=== PATIENT | female | born 1950 | race Caucasian/White ===

== ENCOUNTER 2020-04-22 07:27 | Emergency (ER) | payer MEDICARE, BC, SELFPAY ==
[2020-04-22 07:27] VITALS: BP 183/115; PULSE 72; RESP 16; TEMP 36.4; O2SAT 97; BMI 22.7
--- NOTE | 2020-04-22 07:49 | ED.DCSUM_ITS ---
- ER Visit Summary Date of Service: 04/22/20 Chief Complaint: Pain History of Present Illness: The patient is a 70 F with pain that started March 09. This was associated with dysuria and decreased urine output. She had the pain mostly at nighttime starting around 10 PM in the bilateral inguinal region. It has extended to her lower abdomen/suprapubic region. She is having the pain almost constantly now. She has seen multiple physicians and has had urinalysis, negative cultures, negative BV testing, metabolic panels, ultrasound of her kidneys and renal arteries. Pretty much everything has been unremarkable. She was treated with Keflex, Macrobid. She also was treated with Cipro but only 1 dose because her culture was negative. She was on Pyridium and Estrace. Nothing seems to help. She is not taking anything for pain because she does not think it would work. She follows with Dr. Reyes for COUNTY SHERIFF. History of hypertension and hyperlipidemia. No history of vascular disease, disease, kidney stones, JETTING MACHINE OPERATOR disease. She is not having any other or JETTING MACHINE OPERATOR symptoms. No other GI symptoms. No vascular symptoms. She has not yet had a pelvic exam for this. Physical Examination: Hypertensive at 183/115. But otherwise vitals are unremarkable. She is standing and appears uncomfortable but not toxic or in distress. Alert and oriented. Anxious. See below for pelvic exam. Test Results: We will check basic labs, urinalysis, culture, CT and GC, trichomonas. Will possibly check imaging pending further evaluation results. Emergency Department Course and Treatment: Patient was offered pain medicine but declined. Work-up as above. Patient tells me that she does not want to go home without a diagnosis and would like to be admitted to the hospital. Pelvic exam was chaperoned by DEDE Gregorio. This was unremarkable. External exam was normal without lesions, blood, discharge. Normal palpation externally. Internal exam was also unremarkable without discharge, lesions, or bleeding. No masses. Results are still pending. We will also check a CT to show her abdomen and pelvis. She was agreeable to medication for pain. Work-up was all fairly unremarkable. GC and CT results are still pending. Culture is still pending. CT showed postoperative and chronic changes. Nothing to explain her symptoms. Patient was discussed with her COUNTY SHERIFF. She may need a biopsy for lichen planus. She does have openings today and can see the patient today. She is not currently on any thing for pain and was prescribed a short course of Percocet. Follow-up as an outpatient. Treatment Plan: As above Disposition: Discharge Impression: Pelvic pain This note was generated with [employer] dictation software. It may contain incorrect words, spelling, and punctuation that were not noted in review of the chart prior to signing ED Disposition - Plan for ED Patient: Referrals: Francisco Miller III, MD [Primary Care Provider] -
[2020-04-22 08:01] LABS: Absolute Lymphocyte Count 1.26 X10^3/uL (0.83-4.51); Absolute Neutrophil Count 5.2 X10^3/uL (2.0-7.7); Basophil# 0.03 X10^3/uL; Basophil% 0.4 % (0-1); Eosinophils% 1.4 % (0-5); Hematocrit 45.2 % (37-47); Hemoglobin 15.1 g/dL (12.0-15.0); Lymphocyte # 1.26 X10^3/ul (4.0); Lymphocyte % 18.1 % (19-41); Mean Corp Hgb Conc 33.4 g/dL (32-36); Mean Corpuscular Hgb 30.9 pg (27.0-32.0); Mean Corpuscular Volume 92.6 fL (81-99); Monocyte% 5.7 % (0-10); NRBC Flagged by Analyzer 0 % (0-5); Neutrophil # 5.17 X10^3/uL (2.7-7.7); Neutrophil % 74.3 % (47-70); Platelet Count 304 K/mm3 (150-450); RBC Distribution Width CV 12.9 % (11.6-14.6); RBC Distribution Width SD 43.6 fl (35.1-43.9); Red Blood Count 4.88 M/mm3 (4.2-5.4)
--- NOTE | 2020-04-22 08:05 | CT_ITS ---
STUDY: CT ABDOMEN AND PELVIS WITH CONTRAST REASON FOR EXAM: Female, 70 years old. LOW ABD/PELVIC PAIN, UTI''S AND TROUBLE URINATING. PRIOR CHOLECYSTECTOMY RADIATION DOSAGE (If Supplied By Facility): CTDIvol = ( 13.16 ) mGy, DLP = ( 464.87 ) mGycm TECHNIQUE: Transaxial images were obtained from the dome of the diaphragm to the symphysis pubis without oral contrast. IV 100mL Isovue-300 was administered. Sagittal and coronal images were reconstructed. Individualized dose optimization techniques were used for this CT. COMPARISON: None. FINDINGS: Lung bases: Unremarkable. Heart: Unremarkable. Liver: Tiny hepatic hypodense lesions at the left hepatic lobe (axial image 22 series 2) too small to characterize. Additional hepatic cysts (axial image 28 series 2) the largest of which measures approximately 1.5 cm. Gallbladder/biliary ducts: Cholecystectomy. Minimal postcholecystectomy biliary ductal dilatation. Pancreas: Unremarkable. Spleen: Unremarkable. Adrenal glands: Unremarkable. Kidneys/ureters/bladder: Bilateral symmetric renal parenchymal enhancement. Persistent renal lobulations (anatomic variant). Nondilated ureters. Normal-appearing urinary bladder. Uterus/adnexa: Physiologic appearance. Large bowel/small bowel: Mild constipation. Colonic diverticulosis. No acute large bowel or small bowel process. Appendix: Normal (coronal image 55 series 601). Gastroesophageal junction/stomach: Gastric underdistention. Retroperitoneum/lymph nodes: No intra-abdominal free air. No ascites. No pathologically enlarged lymph nodes. Vascular: Mild vascular calcifications. No aneurysm. Osseous structures: Minimal degenerative features. No acute process. Subcutaneous/soft tissues: No acute process. Mild paraspinal muscle atrophy. CT/Abdomen/Pelvis W IV Cont ONLY IMPRESSION: No acute intra-abdominal/pelvic findings Nonemergent findings, as above Electronically Signed: Seamus Cuellar DO at 8:52 EDT Tel , Service support ,
[2020-04-22 08:13] LABS: Anion Gap 9 (5-15); BUN 23 mg/dL (7-18); Calcium,Total 8.8 mg/dL (8.5-10.1); Chloride 108 mmol/L (98-107); Creatinine, Serum 1.21 mg/dL (0.55-1.02); EST Glomerular Filtration Rate 47 mL/min (>60); Est Glom Filt Rate - Afr Amer 57 mL/min (>60); Estimated Creatinine Clearance 42.67 ml/min; Glucose 142 mg/dL (74-106); Potassium 3.8 mmol/L (3.5-5.1); Sodium Level 139 mmol/L (136-145)
[2020-04-22] MEDS: Morphine 4 MG/ML Syringe IV (08:15)
[2020-04-22] MEDS: Ondansetron 4 MG/2 ML Vial IV (08:15)
[2020-04-22 08:57] LABS: Mucous, Urine 0 SEEN /hpf (<or=2+)
[2020-04-22 09:00] LABS: Color, Urine Yellow (Yellow); Glucose, Dipstick Normal (Normal); Ketone-Dipstick 5 mg/dl (Negative); Leukocyte Esterase-Dipstick Negative /ul (Negative); Nitrite-Dipstick Negative (Negative); Occult Blood-Urine Negative /ul (Negative); Protein-Dipstick Negative (Negative); Specific Gravity, Urine 1.015 (1.002-1.030); Urine Bilirubin Dipstick Negative (Negative); Urine Clarity Sl. Cloudy (Clear); Urine Urobilinogen Normal (Normal)
--- NOTE | 2020-04-22 09:29 | ED.DEP ---
ED Disposition - Plan for ED Patient: Instructions: ED Pelvic Pain [facility] Prescriptions: Oxycodone HCl/Acetaminophen [Percocet 5/325] 1 tab PO Q6H PRN PRN 3 Days #12 tab PRN Reason: Pain Prescription Printed Referrals: Dayami Reyes DO [STAFF PHYSICIAN] -
[2020-04-22 09:44] VITALS: BP 158/86; PULSE 67; RESP 18; O2SAT 99
[2020-04-22 10:00] LABS: Bacteria RARE /hpf (None Seen); Red Blood Cells-Urine 0-5 SEEN /hpf (0-5); Squamous Epithelial Cells - UA 0-5 SEEN /hpf (5-10); White Blood Cells 0-5 SEEN /hpf (0-5)
[2020-04-22 12:33] LABS: Chlamydia Trachomatis by PCR Negative (Negative); Neisserai gonorrhoeae by PCR Negative (Negative); Probe Check PASS; Sample Adequacy Control PASS; Specimen Processing Control PASS
== END 2020-04-22 09:45 | disposition home or self-care (01) ==
PROVIDERS: Emergency Provider Emergency Medicine; PCP Family Medicine
DX: R10.2 Pelvic and perineal pain (principal); R30.0 Dysuria; I10 Essential (primary) hypertension; E78.00 Pure hypercholesterolemia, unspecified; Z79.899 Other long term (current) drug therapy; Z79.82 Long term (current) use of aspirin
CPT/HCPCS: 74177; 80048; 81001; 85025; 87086; 87088; 87210; 87491; 87591; 96374; 96375; 99283; J7040; Q9967; A4216; J2405

== ENCOUNTER 2021-03-12 23:10 | Inpatient (IN) | payer MEDICARE, BC, SELFPAY ==
[2021-03-12 23:11] VITALS: BP 151/87; PULSE 88; RESP 16; TEMP 36.6; O2SAT 99; BMI 21.9
--- NOTE | 2021-03-12 23:22 | RAD_ITS ---
HISTORY: chest pain EXAM: XR Chest 1 View: COMPARISON: February 21, 2016 FINDINGS: # of images incl. paperwork: 2 Pulmonary hyperexpansion is similar Lungs are clear. Heart is not enlarged. No acute osseous pathology perceived. Pulmonary vascularity is distinct. No effusions. RAD/Chest 1 View (Portable) IMPRESSION: Normal. at 0002 Reported and signed by: Everett Calhoun MD Electronically Signed: Everett Calhoun MD at 0:01 EDT Tel , Service support ,
--- NOTE | 2021-03-12 23:22 | EKG12_ITS ---
Test Reason : CP Blood Pressure : / mmHG Vent. Rate : 083 BPM Atrial Rate : 083 BPM P-R Int : 146 ms QRS Dur : 080 ms QT Int : 390 ms P-R-T Axes : 062 041 066 degrees QTc Int : 458 ms Normal sinus rhythm with sinus arrhythmia Low voltage QRS ST elevation consider anterior injury or acute infarct ACUTE DE / STEMI Abnormal ECG Confirmed by SUNIL BEEBE, UZAIR ([id number]), school photograph editor JOSHUA CLOUD ([id number]) on 03/17/2021 9:11:07 AM Referred By: Theresa Carlton Confirmed By:FATMATA BARBER MD
[2021-03-12] MEDS: Aspirin 81 MG TAB.CHEW 324 MG PO (23:27)
[2021-03-12] MEDS: Heparin Injection (Vial) 5,000 UNIT/ML VIAL 3810 UNIT IV (23:27)
[2021-03-12] MEDS: TICAGRELOR 90 MG TABLET 180 MG PO (23:27)
[2021-03-12] MEDS: Morphine 4 MG/ML Syringe IV (23:28)
--- NOTE | 2021-03-12 23:30 | ED.DCSUM_ITS ---
- ER Visit Summary Date of Service: 03/12/21 Chief Complaint: Chest pain History of Present Illness: The patient is a 71 F who presents with chest pain that began approximate 10 minutes prior to arrival. Patient states the pain is over the left parasternal area. Patient states it is constant. Patient states nothing makes it better nothing makes it worse. Patient describes it as sharp. Patient admits to nausea but denies any vomiting. Patient admits to some shortness of breath. Patient denies any diaphoresis. Patient denies any palpitations. Patient denies any cough or fever. Patient states she has a history of diabetes and coronary artery disease. Patient also admits to a family history of coronary artery disease in her father at a young age. Physical Examination: Vital signs are stable except for mildly elevated blood pressure 151/87. Patient is afebrile. Patient is still having pain in her chest on examination. Oral mucosa is pink and moist. Neck is supple. Trachea is midline. There is no JVD. Heart was regular rate and rhythm. Lungs are clear and equal bilateral. There is adequate respiratory effort. Abdomen is soft. Bowel sounds are normal. There is no tenderness. Extremities are intact. There is no calf tenderness or edema. Cranial nerves II through XII are intact. There are no focal motor or sensory deficits. Test Results: EKG was obtained. On my interpretation, there is a normal sinus rhythm with a rate of 83. There is ST elevation in leads V1 through V4. There are no reciprocal changes. PA interval, QRS interval, and QT C intervals are all within normal limits. Colstrip is normal. Portable 1 view chest x-ray was obtained. On my interpretation, lung fernández are clear. There is normal cardiac silhouette. Bony thorax is normal. There is no acute process noted. Radiologist also interpreted the x-ray and agrees. Emergency Department Course and Treatment: STEMI alert was called. Patient was given aspirin and Brilinta orally. Patient was given heparin and morphine IV. Case was discussed with Dr. Carlton, STEMI treasury manager. He will be in to evaluate the patient and take the patient to the [facility]. Case was also discussed with the hospitalist. He will admit the patient to his service. Prior to the patient going to the [facility] she had an episode of ventricular fibrillation. She was defibrillated with 200 J. Patient returned to a normal sinus rhythm. Patient was given [address] Carlton also recommended giving the patient 2 g of magnesium. This was done. Patient also had 3 more episodes of ventricular fibrillation. Patient was defibrillated again. Patient was given another 150 mg of amiodarone. Patient was transferred to the [facility]. Patient understood and was agreeable with the plan. All questions were answered. Disposition: Admit to hospital Impression: 1. Acute anterior STEMI Critical care time: 30 minutes. This was time spent obtaining history, performing physical examination, documenting, interpreting test results, discussion with consultants, and determining disposition. This note was generated with [employer] dictation software. It may contain incorrect words, spelling, and punctuation that were not noted in review of the chart prior to signing ED Disposition - Plan for ED Patient: Disposition: Acute Care Hospital [facility] Diagnosis: Acute ST elevation myocardial infarction (STEMI) of anterior wall Referrals: Francisco Miller III, MD [Primary Care Provider] -
[2021-03-12 23:31] VITALS: BP 156/138; PULSE 90; RESP 19; O2SAT 100
[2021-03-12 23:33] LABS: Absolute Lymphocyte Count 4.66 X10^3/uL (0.83-4.51); Absolute Neutrophil Count 7.1 X10^3/uL (2.0-7.7); Basophil# 0.07 X10^3/uL; Basophil% 0.5 % (0-1); Eosinophil# 0.45 X10^3/uL; Eosinophils% 3.4 % (0-5); Hematocrit 44.7 % (37-47); Lymphocyte # 4.66 X10^3/ul (0.83-4.51); Lymphocyte % 35.5 % (19-41); Mean Corp Hgb Conc 33.6 g/dL (32-36); Mean Corpuscular Hgb 31.1 pg (27.0-32.0); Mean Corpuscular Volume 92.7 fL (81-99); Mean Platelet Vol. 9.4 fl (6.2-12.0); Monocyte# 0.78 X10^3/uL; Monocyte% 5.9 % (0-10); NRBC Flagged by Analyzer 0 % (0-5); Neutrophil # 7.11 X10^3/uL (2.7-7.7); Neutrophil % 54.4 % (47-70); Platelet Count 285 K/mm3 (150-450); RBC Distribution Width CV 12.6 % (11.6-14.6); RBC Distribution Width SD 42.8 fl (35.1-43.9); Red Blood Count 4.82 M/mm3 (4.2-5.4); White Blood Count 13.1 K/mm3 (4.4-11.0)
[2021-03-12 23:34] VITALS: BP 149/105; PULSE 93; RESP 18; O2SAT 100
[2021-03-12] MEDS: Ondansetron 4 MG/2 ML Vial IV (23:36)
[2021-03-12 23:41] VITALS: BP 170/93; PULSE 86; RESP 21; O2SAT 100
[2021-03-12 23:41] LABS: Partial Thromboplast Time 23.4 Seconds (24.1-36.2); Prothrombin Time (Protime)PT. 12.2 SECONDS (11.7-14.9)
--- NOTE | 2021-03-12 23:42 | ED.RN ---
Addendum entered by Katharine León RN 03/12/21 23:45: vfib, noT vTACH Original Note: pt in vtach at this time. dr bland at the bedside shock at 200jules. pt with positive right femoral pulse. vitals 170/90 , 88, 21, 99% on 2L nc
--- NOTE | 2021-03-12 23:43 | PCM.HP.STD ---
Problem List (1) Acute ST elevation myocardial infarction (STEMI) of anterior wall Status: Acute History of Present Illness Date of Admission: 03/12/21 Chief Complaint: Chest pain Patient is a 71-year-old female with a significant history of coronary artery disease; and hypertension who presents to the emergency department with excruciating substernal chest pain that started about 10 minutes before presentation. She describes her chest pain as pain. Her chest pain radiates to her left arm where she says she has numbness. Also she has some back pain that had disappeared by the time she got to the emergency department. Her chest pain is constant with no ameliorating or aggravating factors. Also, she had chest pain about 1-2 days before presentation but her chest pain went away only for it to reoccur 10 minutes before this presentation as stated above. Past Medical History Medical History: Medical History (Last Reviewed 03/13/21 @ 00:[address] Shawn Hubbard MD) HTN (hypertension) I10 Allergies erythromycin lactobionate [From Erythrocin] Allergy (Verified 03/12/21 23:13) Swelling Penicillins Allergy (Verified 03/12/21 23:13) Swelling Home Medications: Ambulatory Orders Medication Instructions Recorded Ascorbic Acid [Vitamin C] 500 mg PO DAILY@0800 08/03/15 Cholecalciferol (VIT D3) [Vitamin 2,000 unit PO DAILY 08/03/15 D] Fluticasone 0.05% [Flonase Nasal 2 spray NASAL DAILY 08/03/15 [place]] Multivitamin [Daily Multiple 1 each PO DAILY 08/03/15 Vitamin] Losartan Potassium [Cozaar] 25 mg PO DAILY 08/21/15 Metoprolol Tartrate 25 mg PO DAILY 12/25/16 Surgical History: cholecystectomy, tonsillectomy Smoking Status: Never smoker - *Family History Maternal History Items: Heart Disease Review of Systems Constitutional: Denies: Chills, Fever, Weight Change HEENT: Denies: Head Aches, Sinus Congestion, Sinus Drainage Cardiovascular: Reports: Chest Pain. Denies: Palpitations Respiratory: Reports: Shortness of Breath. Denies: Cough, Shortness of breath at rest, Sputum production Gastrointestinal: Reports: Nausea. Denies: Abdominal Pain, Vomiting Genitourinary: Denies: Dysuria Musculoskeletal: Denies: Joint Pain, Joint Tenderness Skin: Denies: Rash, Wounds Neurological: Denies: Numbness, Tingling, Focal weakness Psychiatric: Denies: Anxiety, Depression, Homicidal Ideations, Suicidal Ideations Hematologic/ Lymphatic: Denies: Easy Bruising, Easy Bleeding VTE Information - Inpt Only VTE Present on Admission: No VTE Mechan Device Prophylaxis: None VTE Pharm Prophylaxis ordered?: No Reason prophylaxis not ordered:: Treatment Not Indicated - Heparin IV given at the ED for STEMI Patient Problems: Active and Suspected Problems (Last Updated 03/13/21 @ 00:[address] Shawn Hubbard MD) Acute ST elevation myocardial infarction (STEMI) of anterior wall (Acute) - Physical Exam Vitals/I&O's: Vital Signs Temp Pulse Resp BP Pulse Ox 97.9 F 86 21 H 170/93 H 100 03/12/21 23:11 03/12/21 23:41 03/12/21 23:41 03/12/21 23:41 03/12/21 23:41 Oxygen Flow Rate (L/min) 2 Oxygen Delivery Method Nasal Cannula Weight: 63.503 kg Body Mass Index (BMI) 21.9 General: Alert, Oriented x3, - - In distress secondary to chest pain HEENT: Atraumatic, PERRLA, EOMI, Normocephalic Neck: Supple, No JVD, Negative Carotid Bruits Lungs: Clear to auscultation, Normal air movement Cardiovascular: Regular rate, No murmurs Abdomen: Bowel Sounds Present, Soft, Non Tender Extremities: No edema, Capillary Refill Less than 3 Seconds Skin: No rashes, No breakdown Musculoskeletal: No Tenderness to Palpation of Joints or Extremities Neurological: Cranial nerves II-XII grossly intact Psych/Mental Status: Anxious Laboratory Results 03/12/21 23:27: WBC 13.1 H, RBC 4.82, Hgb 15.0, Hct 44.7, MCV 92.7, MCH 31.1, MCHC 33.6, RDW Std Deviation 42.8, RDW Coeff of Obi 12.6, Plt Count 285, MPV 9.4, Immature Gran % (Auto) 0.300, Neut % (Auto) 54.4, Lymph % (Auto) 35.5, Lake % (Auto) 5.9, Eos % (Auto) 3.4, Baso % (Auto) 0.5, Absolute Neuts (auto) 7.1, Absolute Lymphs (auto) 4.66 H, Nucleated RBC % 0 03/12/21 23:27: PT 12.2, INR 1.0, APTT 23.4 L 03/12/21 23:27: Sodium Pending, Potassium Pending, Chloride Pending, Carbon Dioxide Pending, Anion Gap Pending, BUN Pending, Creatinine Pending, Est GFR (MDRD) Af Amer Pending, Est GFR (MDRD) Non-Af Pending, BUN/Creatinine Ratio Pending, Glucose Pending, Calcium Pending, Troponin I Pending Current Medications Amiodarone HCl 150 mg/ (Dextrose) 103 mls @ 600 mls/hr IV BOLUS X1 ONE Stop: 03/12/21 23:51 Assessment/Plan All Active Problems (Last Updated 03/13/21 @ 00:[address] Shawn Hubbard MD) Acute ST elevation myocardial infarction (STEMI) of anterior wall (Acute) Patient is a 71-year-old female with a significant history of coronary artery disease; and hypertension who presents to the emergency department with excruciating substernal chest pain that started about 10 minutes before presentation and found to have ST elevation LA. ST elevation LA EKG tracing independently interpreted showed ST elevations in lead V1 to V4 but without a reciprocal changes. Received full dose of aspirin; Brilinta; morphine and heparin at the emergency department. Patient will be wheeled to the Plaster Applicator. Baby aspirin daily. Continue home metoprolol and cozaar if there are no contraindication after Plaster Applicator. Keep n.p.o. for now Emergent cardiac discussed the case with sort operations supervisor. Will consult sort operations supervisor inpatient. ventricular fibrillation Patient had episodes of multiple ventricular fibrillation and was defibrillated with ROSC. She was then given amiodarone IV at the ED; and another amiodarone enroute to the labor specialist. Hypertension Blood pressure is not within goal Continue metoprolol and Cozaar if there no contraindications of the Plaster Applicator. Trend blood pressure and adjust blood pressure medications. DVT prophylaxis Received heparin at emergent department. Further orders to be determined after heart cath. Inpatient E&M: 51893 In Hosp L3
[2021-03-12 23:51] LABS: Anion Gap 9 (5-15); BUN 24 mg/dL (7-18); BUN/Creat Ratio 19.2 RATIO (10-20); Chloride 105 mmol/L (98-107); Creatinine, Serum 1.25 mg/dL (0.55-1.02); EST Glomerular Filtration Rate 45 mL/min (>60); Est Glom Filt Rate - Afr Amer 55 mL/min (>60); Estimated Creatinine Clearance 40.72 ml/min; Glucose 149 mg/dL (74-106); Potassium 2.8 mmol/L (3.5-5.1); Sodium Level 137 mmol/L (136-145)
--- NOTE | 2021-03-12 23:51 | ED.RN ---
PT IN VFIB. DR COOPER AT THE BEDSIDE. 1 SHOCK 200 J, NO CHANGE. ANOTHER SHOCK 200J, NO CHANGE. PT STILL IN VFIB SHOCK AT 360J. PT WITH RIGHT FEMORAL PULSE. VITALS 160/106,87,27,100%2L.
[2021-03-13] VITALS (34 sets, daily range): BP systolic 107–169; BP diastolic 68–110; PULSE 72–101; RESP 10–27; TEMP 36.3–36.8; O2SAT 92–100; BMI 25.1
[2021-03-13] MEDS: Magnesium Sulfate 2 GM in Syringe 1 EACH IV (00:09)
[2021-03-13] MEDS: Heparin 10,000 UNITS/10 ML Vial 2000 UNITS IV (00:09)
--- NOTE | 2021-03-13 01:00 | EKG12_ITS ---
Test Reason : ST ELEVATION Blood Pressure : / mmHG Vent. Rate : 113 BPM Atrial Rate : 113 BPM P-R Int : 126 ms QRS Dur : 068 ms QT Int : 336 ms P-R-T Axes : 070 005 068 degrees QTc Int : 460 ms Sinus tachycardia Low voltage QRS Inferior infarct , possibly acute Anteroseptal infarct , possibly acute Lateral injury pattern * ACUTE AK Abnormal ECG Confirmed by KATHIE BEEBE, MAXWELL ([id number]), department editor SHIRLEY RIVAS ([id number]) on 03/18/2021 1:26:35 PM Referred By: Theresa Carlton Confirmed By:MAXWELL VÁZQUEZ MD
--- NOTE | 2021-03-13 01:06 | CL.PCI_ITS ---
PCI Cardiac Cath Report PCI Report: Procedure performed; 1. Left heart catheterization 2. Successful PCI of the culprit lesion, occluded mid LAD with predilatation using 2 x 20 mm balloon, followed by placement of 2.75 x 30 mm resolute/drug- eluting stent, overlapped proximally with a 3 x 18 mm resolute/drug-eluting s tent and achievement of 0% stenosis with LAUREN III flow Initially with occluded mid LAD LAUREN 0 flow post procedure achievement of LAUREN-[address] With resolution of ST segment elevation and resolution of symptoms of chest pain line. 3. Measurement of LVEDP 4. Left ventriculogram 5. Right common femoral artery angiography and placement of Perclose to close arteriotomy site. Preprocedure diagnosis; 71-year-old patient who presented to the ER at the [facility] severe retrosternal chest pain that started this evening around 11:00 according to patient with diaphoresis feeling nauseated Electrocardiogram in the ER showed evidence of ST elevation in the anterolateral lead with remarkable reciprocal change in the inferior lead Patient was very unstable she had recurrent episode of V. fib x4 requiring shock and also started on amiodarone IV 2 boluses were given. With 2 g of magnesium was given in the ER and patient was brought to the Geospatial Imagery Intelligence Analyst as an emergency. Patient had a history of CAD and had a prior cardiac catheterization done at [facility] however she did not have any stent or bypass surgery. Patient had history of diabetes mellitus which is controlled with diet according to her she is not a smoker. Interventional plan and catheters; 1. 6 Slovenian 3.5 EBU guide 2. 5 Slovenian JR4 catheter 3. 5 Slovenian pigtail catheter 4. 0.014 BMW universal straight 190 cm 0.014 run-through extra floppy 180 cm straight Patient brought as an emergency to the Geospatial Imagery Intelligence Analyst, risk-benefit procedure explained in detail and informed consent was obtained We will proceed with guide catheter which is 6 Slovenian EBU guide catheter engaged the left coronary ostium without difficulty Angiographic view revealed occluded mid LAD. Proceed with BMW wire across the lesion in the mid LAD, followed by predilatation using 2 x 20 mm balloon Followed by placement of a drug-eluting stent resolute 2.75 x 30. Overlap with 3 x 18 mm resolute and achieve LAUREN-3 flow, symptoms of chest pain resolved. This patient was given Brilinta 180 mg in the ER, aspirin 324, heparin a total of 5000 in the ER additional 3000 heparin was given in the Geospatial Imagery Intelligence Analyst with ACT level above 250 and patient was started on Integrilin 2 boluses of followed by infusion of 2 mcg. Hemodynamic; LV systolic function preserved with ejection fraction in the range of 55 to 60% There is no systolic gradient across the aortic valve LVEDP is around 21 mmHg Coronary angiography; 1. Left main coronary artery normal angiographically, trifurcating into LAD, ramus intermedius, left circumflex Left anterior descending artery large vessel occluded in the midportion at the site of the septal and a diagonal branch. Following the PCI LAD is a large vessel with abundant septal branches and reaching all the way to the apex 2. Ramus intermedius is a small to moderate sized vessel norm angiographically The left circumflex is a small normal angiographically 3. RCA is large dominant and normal angiographically. Perclose used to close arteriotomy site with no complication in the Geospatial Imagery Intelligence Analyst Conclusion recommendations; STEMI/acute anterolateral myocardial infarction with occluded mid LAD with successful PCI as explained Patient will be on dual antiplatelet therapy with Brilinta/aspirin for 1 year and to follow-up with aspirin indefinitely We will add beta-sami carvedilol and DEVI inhibitor and high-dose statin This is a very high risk patient who presented with severe symptoms of chest pain with ST elevation MS and V. fib x4 requiring multiple shocks in the ER and started on amiodarone and magnesium We will evaluate by echocardiogram in the morning and will continue to monitor electrolytes magnesium and potassium. Theresa Carlton MD,FACC,[facility]
[2021-03-13] MEDS: 0.9% Normal Saline 1,000 ML 75 ML IV ×2 (01:43→09:51)
[2021-03-13] MEDS: Ondansetron 4 MG/2 ML Vial IV (02:06)
[2021-03-13] MEDS: Furosemide 20 MG/2 ML VIAL IV (02:06)
[2021-03-13] MEDS: 0.9% Saline Lock 10 ML Syringe IV (02:06)
[2021-03-13 02:19] LABS: Absolute Lymphocyte Count 1.46 X10^3/uL (0.83-4.51); Absolute Neutrophil Count 16.3 X10^3/uL (2.0-7.7); Basophil# 0.05 X10^3/uL; Basophil% 0.3 % (0-1); Eosinophil# 0.26 X10^3/uL; Eosinophils% 1.4 % (0-5); Hematocrit 43.6 % (37-47); Hemoglobin 14.3 g/dL (12.0-15.0); Lymphocyte # 1.46 X10^3/ul (0.83-4.51); Lymphocyte % 7.7 % (19-41); Mean Corp Hgb Conc 32.8 g/dL (32-36); Mean Corpuscular Hgb 31.1 pg (27.0-32.0); Mean Corpuscular Volume 94.8 fL (81-99); Mean Platelet Vol. 9.8 fl (6.2-12.0); Monocyte# 0.77 X10^3/uL; Monocyte% 4.1 % (0-10); NRBC Flagged by Analyzer 0 % (0-5); Neutrophil # 16.31 X10^3/uL (2.7-7.7); Platelet Count 188 K/mm3 (150-450); RBC Distribution Width CV 12.6 % (11.6-14.6); RBC Distribution Width SD 43.8 fl (35.1-43.9); White Blood Count 18.9 K/mm3 (4.4-11.0)
[2021-03-13 02:28] LABS: International Normalized Ratio 1.2; Prothrombin Time (Protime)PT. 14.5 SECONDS (11.7-14.9)
[2021-03-13 02:33] LABS: Anion Gap 9 (5-15); BUN 21 mg/dL (7-18); BUN/Creat Ratio 18.9 RATIO (10-20); Calcium,Total 7.6 mg/dL (8.5-10.1); Chloride 104 mmol/L (98-107); Creatinine, Serum 1.11 mg/dL (0.55-1.02); EST Glomerular Filtration Rate 52 mL/min (>60); Est Glom Filt Rate - Afr Amer 63 mL/min (>60); Estimated Creatinine Clearance 45.86 ml/min; Glucose 201 mg/dL (74-106); Potassium 3.5 mmol/L (3.5-5.1); Sodium Level 135 mmol/L (136-145)
[2021-03-13 02:45] LABS: Partial Thromboplast Time > 250.0 Seconds (24.1-36.2)
--- NOTE | 2021-03-13 04:30 | NURSING ---
Pts primary rn aware of troponin of 90.2 at this time.
[2021-03-13 05:46] LABS: Absolute Lymphocyte Count 0.83 X10^3/uL (0.83-4.51); Absolute Neutrophil Count 18.3 X10^3/uL (2.0-7.7); Basophil# 0.02 X10^3/uL; Basophil% 0.1 % (0-1); Eosinophil# 0.01 X10^3/uL; Hematocrit 45.4 % (37-47); Lymphocyte # 0.83 X10^3/ul (0.83-4.51); Lymphocyte % 4.1 % (19-41); Mean Corpuscular Hgb 30.6 pg (27.0-32.0); Mean Corpuscular Volume 92.7 fL (81-99); Mean Platelet Vol. 9.6 fl (6.2-12.0); Monocyte# 1.18 X10^3/uL; Monocyte% 5.8 % (0-10); NRBC Flagged by Analyzer 0 % (0-5); Neutrophil # 18.32 X10^3/uL (2.7-7.7); Neutrophil % 89.6 % (47-70); Platelet Count 229 K/mm3 (150-450); RBC Distribution Width CV 12.7 % (11.6-14.6); RBC Distribution Width SD 43.1 fl (35.1-43.9); White Blood Count 20.5 K/mm3 (4.4-11.0)
[2021-03-13 06:02] LABS: BUN 20 mg/dL (7-18); Creatinine, Serum 1.15 mg/dL (0.55-1.02); EST Glomerular Filtration Rate 50 mL/min (>60); Estimated Creatinine Clearance 44.27 ml/min; Glucose 248 mg/dL (74-106)
[2021-03-13 06:03] LABS: ALB/GLOB Ratio 1.1 RATIO (0.9-2.4); AST(SGOT) 456 U/L (15-37); Alanine Aminotransfer ALT/SGPT 74 U/L (13-56); Albumin, Serum 3.8 g/dL (3.2-5.0); Alkaline Phosphatase 128 U/L (45-117); Anion Gap 7 (5-15); BUN/Creat Ratio 17.4 RATIO (10-20); Calcium,Total 8.1 mg/dL (8.5-10.1); Chloride 105 mmol/L (98-107); Cholesterol 158 mg/dL (200); Est Glom Filt Rate - Afr Amer 60 mL/min (>60); Globulin 3.6 g/dL (2.2-4.2); High Density Lipoprotein 40 mg/dL; Potassium 3.9 mmol/L (3.5-5.1); Protein, Total 7.4 g/dL (6.4-8.2); Sodium Level 137 mmol/L (136-145); Triglycerides 144 mg/dL; Very Low Density Lipoprotein 29 mg/dL (5-40)
--- NOTE | 2021-03-13 07:27 | PN_ITS ---
Patient Problems: Active and Suspected Problems (Last Updated 03/13/21 @ 12:08 by Gissell Ramos) Acute ST elevation myocardial infarction (STEMI) of anterior wall (Acute) Reason for Visit: Follow-up on acute STEMI Subjective: Patient was seen and examined. She complains of feeling thirsty. She denied any more chest pain or dizziness. She appeared very anxious. She has a FemoStop in her right groin for right hematoma/bruise post cath. Objective: Physical exam: General: Alert, Oriented x3, Cooperative, No apparent distress, Well developed HEENT: Atraumatic Oral: Moist Mucosa Neck: Supple Lungs: Clear to auscultation Cardiovascular: HS I+II, regular, no murmurs Abdomen: Bowel Sounds Present, Soft, Non Tender Extremities: No edema Skin: No rashes, No breakdown Neurological: Grossly intact Psych/Mental Status: Appropriate Vitals/I&O's: Vital Signs Temp Pulse Resp BP Pulse Ox 97.6 F L 82 22 H 136/96 H 96 03/13/21 01:10 03/13/21 06:00 03/13/21 06:00 03/13/21 06:00 03/13/21 06:51 Oxygen Flow Rate (L/min) 2 Oxygen Delivery Method Nasal Cannula Weight: 72.7 kg Body Mass Index (BMI) 25.1 Intake and Output for Last 24 Hours 03/11/21 03/12/21 03/13/21 23:59 23:59 23:59 Intake Total 220.7 / 220.7 Output Total 100 / 100 Balance 120.7 / 120.7 Laboratory Results 03/12/21 23:27: WBC 13.1 H, RBC 4.82, Hgb 15.0, Hct 44.7, MCV 92.7, MCH 31.1, MCHC 33.6, RDW Std Deviation 42.8, RDW Coeff of Obi 12.6, Plt Count 285, MPV 9.4, Immature Gran % (Auto) 0.300, Neut % (Auto) 54.4, Lymph % (Auto) 35.5, [place] % (Auto) 5.9, Eos % (Auto) 3.4, Baso % (Auto) 0.5, Absolute Neuts (auto) 7.1, Absolute Lymphs (auto) 4.66 H, Nucleated RBC % 0 03/12/21 23:27: PT 12.2, INR 1.0, APTT 23.4 L 03/12/21 23:27: Sodium 137, Potassium 2.8 L, Chloride 105, Carbon Dioxide 23.0, Anion Gap 9, BUN 24 H, Creatinine 1.25 H, Estim Creat Clear Calc 40.72, Est GFR (MDRD) Af Amer 55 L, Est GFR (MDRD) Non-Af 45 L, BUN/Creatinine Ratio 19.2, Glucose 149 H, Calcium 9.0, Troponin I 0.034 03/13/21 01:45: WBC 18.9 H, RBC 4.60, Hgb 14.3, Hct 43.6, MCV 94.8, MCH 31.1, MCHC 32.8, RDW Std Deviation 43.8, RDW Coeff of Obi 12.6, Plt Count 188, MPV 9.8, Immature Gran % (Auto) 0.500, Neut % (Auto) 86.0 H, Lymph % (Auto) 7.7 L, [place] % (Auto) 4.1, Eos % (Auto) 1.4, Baso % (Auto) 0.3, Absolute Neuts (auto) 16.3 H, Absolute Lymphs (auto) 1.46, Nucleated RBC % 0 03/13/21 01:45: PT 14.5, INR 1.2, APTT > 250.0 H* 03/13/21 01:45: Sodium 135 L, Potassium 3.5, Chloride 104, Carbon Dioxide 22.0, Anion Gap 9, BUN 21 H, Creatinine 1.11 H, Estim Creat Clear Calc 45.86, Est GFR (MDRD) Af Amer 63, Est GFR (MDRD) Non-Af 52 L, BUN/Creatinine Ratio 18.9, Glucose 201 H, Calcium 7.6 L 03/13/21 01:45: Troponin I 90.200 H* 03/13/21 05:40: WBC 20.5 H, RBC 4.90, Hgb 15.0, Hct 45.4, MCV 92.7, MCH 30.6, MCHC 33.0, RDW Std Deviation 43.1, RDW Coeff of Obi 12.7, Plt Count 229, MPV 9.6, Immature Gran % (Auto) 0.400, Neut % (Auto) 89.6 H, Lymph % (Auto) 4.1 L, [place] % (Auto) 5.8, Eos % (Auto) 0.0, Baso % (Auto) 0.1, Absolute Neuts (auto) 18.3 H, Absolute Lymphs (auto) 0.83, Nucleated RBC % 0 03/13/21 05:40: Troponin I > 200.000 H* 03/13/21 05:40: Sodium 137, Potassium 3.9, Chloride 105, Carbon Dioxide 25.0, Anion Gap 7, BUN 20 H, Creatinine 1.15 H, Estim Creat Clear Calc 44.27, Est GFR (MDRD) Af Amer 60, Est GFR (MDRD) Non-Af 50 L, BUN/Creatinine Ratio 17.4, Glucose 248 H, Calcium 8.1 L, Total Bilirubin 0.60, AST 456 H, ALT 74 H, Alkaline Phosphatase 128 H, Total Protein 7.4, Albumin 3.8, Globulin 3.6, Albumin/Globulin Ratio 1.1, Triglycerides 144, Cholesterol 158, LDL Cholesterol 89, VLDL Cholesterol 29, HDL Cholesterol 40 Current Medications Aspirin (Aspirin 81 Mg Tab.Chew) 81 mg PO DAILY@0800 [facility] Heparin Sodium (Porcine) (Heparin Injection (Vial) 5,000 Unit/Ml Vial) 5,000 unit SC Q12 [facility] Sodium Chloride () 1,000 mls @ 75 mls/hr IV .[id number] [facility] Last Admin: 03/13/21 01:43 Dose: 75 mls/hr Documented by: Eptifibatide (Integrilin) 75 mg in 100 mls @ 10.16 mls/hr CONT INF .[id number] [facility] Last Infusion: 03/13/21 01:50 Dose: 0 mcg/kg/min, 0 mls/hr Documented by: Sodium Chloride () 250 mls @ 15 mls/hr IV .[id number] PRN PRN Reason: Saline Flush Sodium Chloride () 250 mls @ 15 mls/hr IV .[id number] PRN PRN Reason: Additional IVPB Infusion Ondansetron HCl (Ondansetron 4 Mg/2 Ml Vial) 4 mg IV Q8H PRN PRN PRN Reason: NAUSEA/VOMITING Last Admin: 03/13/21 02:06 Dose: 4 mg Documented by: Sodium Chloride (0.9% Saline Lock 10 Ml Syringe) 10 - 40 ml IV UD PRN PRN Reason: SALINE FLUSH Last Admin: 03/13/21 02:06 Dose: 40 ml Documented by: Ticagrelor (Ticagrelor 90 Mg Tablet) 90 mg PO BID RAMU STROKE Vital Signs/Narrative: Vital Signs Pulse Resp BP Pulse Ox 03/13/21 06:51 96 03/13/21 06:00 82 22 H 136/96 H 96 03/13/21 05:00 80 22 H 147/90 H 97 03/13/21 04:00 84 23 H 140/96 H 96 03/13/21 03:45 80 19 H 148/88 H 96 Medical Necessity - Tobacco Use Smoking Status: Never smoker Assessment/Plan All Active Problems (Last Updated 03/13/21 @ 12:08 by Gissell Raoms) Acute ST elevation myocardial infarction (STEMI) of anterior wall (Acute) 1. Acute STEMI, anterolateral, s/p cardiac cath. Findings included occluded mid LAD with successful PCI H/o CAD, continue on aspirin, Brilinta, statin, metoprolol, losartan Cardiology following 2. Ventricular fibrillation, s/p shock, status amiodarone and magnesium IV Will check magnesium level 3. Leucocytosis, likely reactive secondary to stress No signs of sepsis, will trend 4. Hypokalemia, replaced 5. Hypertension, fairly uncontrolled, will resume home metoprolol and losartan 4. DVT PPx- Heparin SC Inpatient E&M: [id number] Subs Hosp L2
[2021-03-13] MEDS: TICAGRELOR 90 MG TABLET PO ×2 (09:47→21:12)
[2021-03-13] MEDS: LORazepam 1 MG Tablet PO (09:47)
[2021-03-13] MEDS: Heparin Injection (Vial) 5,000 UNIT/ML VIAL 5000 UNIT SC (09:50)
--- NOTE | 2021-03-13 10:24 | CASEMGMT ---
Addendum entered by Wu Lopez 03/13/21 10:29: Ana AGUAYO, pt was just medicated w/Ativan. Ana jaramillo Brilinta savings card has been given to pt and she was instructed on use. Ana states she will reinforce Brilinta savings card w/pt later today. Original Note: RN CM TANNING DRUM OPERATOR CM to room to meet with patient for initial transition planning/care coordination assessment. RN MYRA introduced self and role at [facility]. Pt voices understanding and consents to assessment at this time. Pt resting in bed. States is having some chest discomfort and states it has been ongoing. Ana AGUAYO, aware. Pt is A/O at this time and answers all questions appropriately. Care providers, pharmacy, and demographics verified/updated at this time. PCP: Dr Carlos Miller Specialists: none Preferred Pharmacy: [facility] Insurance: PRIYANKA Rafael Pena Prescription Benefit: Yes-[employer]. Pt to discharge home on Brilinta. Brilinta 30-day savings card given to pt and instructed on use. Pt voices understanding. Living Will/HPOA: [facility] does not have LW or HCPOA . Interested in more information but [facility] does not want to talk with SW at this time to complete paperwork. Provided information on advanced directives and given Social Service rac card with number to call if chooses in the future to utilize [facility] social work for advanced directive completion. Educated patient that, if patient so chooses, can come back to [facility] and meet with a SW as an outpatient to complete health care advanced directives. Patient expresses understanding. LNOK: , [place]. Has 2 children Living Arrangements: Lives w/her in 1 11/29 story home w/2 steps to enter. Independent w/ADL's and IADL's. Transportation: Pt states drives self and states no transportation concerns at this time. also drives DME: Denies using any DME and denies needs. HHC/SNF: No history of either. No needs identified. Pt wishes to return home and states has no concerns with going home at time of discharge. CM to follow for any further discharge planning/needs. Pt voices no further concerns/needs at this time. Advised pt to ask for CM if any further questions/concerns/needs arise. Voices understanding. PLAN: Home on Brilinta. Brilinta 30-day savings card given to pt and instructed on use. Pt voices understanding. Nav MILESN RN CM
--- NOTE | 2021-03-13 11:50 | CRPHASE1_ITS ---
Patient Communication Former Patient:: Phase I PHII Cardiac Rehab Discussed with Patient:: Yes Guide to Cardiac Rehab Given to Patient:: Yes Cardiac Rehab Facility Choice List Given to Patient:: Yes Choice Program [facility] CR PHII:: Communication Given to CR - Pt refusing to participate in CR at the time of the Phase I teaching. Refer Phase II Cardiac Rehab:: Yes Sessions:: 36 sessions - 3 days/wk, 12 weeks Cardiac Rehabilitation Info Cardiac Rehabilitation Program Information: Cardiac Rehabilitation is important for patients like you who are recovering f rom a heart problem. Cardiac rehabilitation programs are recognized as integral to the continued care of the patient with coronary heart disease. The cardiac rehabilitation program is designed to optimize a patient's physical, psychological, and social functioning. Health caregivers non medical work in cardiac rehabilitation programs and assist you with getting the treatments you need to get stronger and healthier - like exercise, healthy eating habits, and medications. Cardiac rehabilitation has been show to help people with heart problems live longer and have better life enjoyment than people who do not go to cardiac rehabilitation. Please contact the Cardiac Rehabilitation Program at [facility] at in two weeks if you have not heard from them.
--- NOTE | 2021-03-13 11:51 | CRPH1.INSTRU ---
General Education CAD and cardiac anatomy and function:: Needs reinforcement Explanation of diagnoses and procedures:: Needs reinforcement Sign/Symptoms of NH:: Needs reinforcement Antiplatelet therapy: Needs reinforcement Proper use of NTG-SL: Needs reinforcement Emergency procedures and activation of EMS: Needs reinforcement Compliance of all prescribed medications: Needs reinforcement Smoking Nicotine/Smoking Response Code:: Not instructed - Pt refusing education regarding cardiac rehab. Dyslipidemia Dyslipidemia Response Code:: Not instructed - Pt refusing education regarding cardiac rehab. Overweight/Obesity Overweight/Obesity:: Not instructed - Pt refusing education regarding cardiac rehab. Hypertension Hypertension:: Not instructed - Pt refusing education regarding cardiac rehab. Heart Disease Heart Disease Response Code:: Not instructed - Pt refusing education regarding cardiac rehab. Diabetes Diabetes:: Not instructed - Pt refusing education regarding cardiac rehab. Metabolic Syndrome Metabolic Syndrome Response Code:: Not instructed - Pt refusing education regarding cardiac rehab. Sedentary Sedentary Response Code:: Not instructed - Pt refusing education regarding cardiac rehab. Stress Stress Response Code:: Not instructed - Pt refusing education regarding cardiac rehab.
--- NOTE | 2021-03-13 12:16 | ECHOCS_ITS ---
Reason For Study: POST STEMI Procedure This was a 2D Doppler, Color Flow transthoracic echocardiogram. The study was technically difficult. Exam performed portable in ICU/CCU. Left Ventricle Moderate LV dilation with severe Anteroapical/septal Hypokinesia. The estimated ejection fraction is EF 35-40% %. Right Ventricle Normal right ventricle. Normal systolic function. Atria Normal left atrium. Normal right atrium. Intact atrial septum. Mitral Valve The mitral valve is structurally normal. No prolapse or stenosis seen. No mitral valve insufficiency. Tricuspid Valve Normal tricuspid valve. Trivial tricuspid valve insufficiency. Aortic Valve Trisinus/trileaflet aortic valve. Pulmonic Valve The pulmonic valve is not well visualized. Great Vessels Normal aortic root. Normal inferior vena cava. Pericardium/Pleural No pericardial effusion. Medication Diluted definity 4ml given slow IV push to enhance endocardial definition. MMode/2D Measurements & Calculations LVIDd: 4.2 cm IVSd: 0.86 cm Ao root diam: 2.8 cm LVIDs: 2.5 cm LVPWd: 0.85 cm RVDd: 2.4 cm FS: 40.0 % LAV(MOD-bp): 23.8 ml LVAd ap4: 25.4 cm2 SV(MOD-sp4): 31.6 ml LAV(MOD-bp) Indexed: 13.0 ml/m2 EDV(MOD-sp4): 78.3 ml LAV(MOD-sp2): 26.0 ml EDV(sp4-el): 82.9 ml LAV(MOD-sp4): 20.2 ml LVAs ap4: 19.2 cm2 ESV(MOD-sp4): 46.8 ml ESV(sp4-el): 49.2 ml EF(MOD-sp4): 40.3 % EF(sp4-el): 40.7 % SV(sp4-el): 33.8 ml LA A4 area: 10.1 cm2 LA dimension(2D): 2.7 cm RA A4 area: 8.9 cm2 Time Measurements MV dec time: 0.20 sec Doppler Measurements & Calculations MV E max clyde: 85.0 cm/sec Lat Peak E' Clyde: 10.6 cm/sec Med Peak E' Clyde: 6.4 cm/sec MV A max clyde: 87.3 cm/sec E/E' lat: 8.0 E/E' med: 13.4 MV E/A: 0.97 Ao V2 max: 131.0 cm/sec LV V1 max: 100.7 cm/sec PA V2 max: 91.3 cm/sec Ao max P.9 mmHg LV V1 max P.1 mmHg TR max clyde: 301.0 cm/sec TR max P.2 mmHg ECHO/Echo Complete W/ Contrast Interpretation Summary Moderate LV dilation with severe Anteroapical/septal Hypokinesia The estimated ejection fraction is EF 35-40% Defintty used to delinate ,the endocardium and measurment of LV systolic functi on Ordering Physician: Theresa Carlton Referring Physician: LYNN GARCIA Performed By: Colleen Arreguin RDCS
--- NOTE | 2021-03-13 13:41 | PN.CARD_ITS ---
Subjectve: 71-year-old patient, presented with retrosternal chest pain With acute anteroseptal myocardial infarction. She was very unstable in the ER and had 4 episodes of V. fib requiring immediate she had occluded mid LAD underwent PCI and stenting of the mid LAD Post PCI course has been clinically stable she does not have any further episode of chest pain. She was on Integrilin and she had bruises in the right groin requiring FemoStop application as well as sent back to the right groin Today at bedside she was seen and evaluated cardiac care plan discussed with the nursing staff Patient has normal cardiac rhythm with normal cardiac examination and Blood pressure is stable Assessment and plan;. Patient presented with STEMI/anteroseptal myocardial infarction The left ventricle gram in the [facility] showed LV function is preserved I discussed the current medication, will continue on dual antiplatelet with Brilinta and aspirin, low-dose beta-sami as tolerated, she has epigastric discomfort with the acid reflux/GERD started on proton pump inhibitor And also I noted she had elevated white cell count with neutrophilia and request to check her urine test for UTI. Patient has echocardiogram will review the echocardiogram today and will follow- up clinically. As the patient has unstable course with recurrent episode of ventricular fibrillation we will keep over the night in the intensive care unit and if she is stable clinically she can be transferred in the morning to the medical floor./PCU Objective: Vital Signs Temp Pulse Resp BP Pulse Ox 98 F 90 16 167/103 H 96 03/13/21 12:00 03/13/21 13:00 03/13/21 13:00 03/13/21 13:00 03/13/21 13:00 Oxygen Flow Rate (L/min) 2 Oxygen Delivery Method Room Air Weight: 160 lb 4.417 oz Body Mass Index (BMI) 25.1 Intake and Output for Last 24 Hours 03/11/21 03/12/21 03/13/21 23:59 23:59 23:59 Intake Total 1310.7 / 1310.7 Output Total 200 / 200 Balance 1110.7 / 1110.7 General: Awake, Alert, Oriented x 3 HEENT: PERRL, EOMI, Sclera Non Icteric Neck: Supple, Good ROM, No Lymph Node Enlargement Lungs: Clear to auscultation Cardiovascular: Regular Rhythm, Normal S1, Normal S2, No Murmurs, No Rubs, No Gallops, PMI Non Distended, No Thrills Abdomen: Bowel Sounds Present, Soft Skin: No Rashes Neurological: No Focal Motor or Sensory Deficit Psych/Mental Status: Appropriate 03/12/21 23:27: WBC 13.1 H, RBC 4.82, Hgb 15.0, Hct 44.7, MCV 92.7, MCH 31.1, MCHC 33.6, Plt Count 285, MPV 9.4, Immature Gran % (Auto) 0.300, Neut % (Auto) 54.4, Lymph % (Auto) 35.5, [place] % (Auto) 5.9, Eos % (Auto) 3.4, Baso % (Auto) 0.5, Absolute Neuts (auto) 7.1, Nucleated RBC % 0 03/12/21 23:27: PT 12.2, INR 1.0, APTT 23.4 L 03/12/21 23:27: Sodium 137, Potassium 2.8 L, Chloride 105, Carbon Dioxide 23.0, Anion Gap 9, BUN 24 H, Creatinine 1.25 H, Est GFR (MDRD) Af Amer 55 L, Est GFR (MDRD) Non-Af 45 L, BUN/Creatinine Ratio 19.2, Glucose 149 H, Calcium 9.0, Troponin I 0.034 03/13/21 01:45: WBC 18.9 H, RBC 4.60, Hgb 14.3, Hct 43.6, MCV 94.8, MCH 31.1, M CHC 32.8, Plt Count 188, MPV 9.8, Immature Gran % (Auto) 0.500, Neut % (Auto) 86.0 H, Lymph % (Auto) 7.7 L, [place] % (Auto) 4.1, Eos % (Auto) 1.4, Baso % (Auto) 0.3, Absolute Neuts (auto) 16.3 H, Nucleated RBC % 0 03/13/21 01:45: PT 14.5, INR 1.2, APTT > 250.0 H* 03/13/21 01:45: Sodium 135 L, Potassium 3.5, Chloride 104, Carbon Dioxide 22.0, Anion Gap 9, BUN 21 H, Creatinine 1.11 H, Est GFR (MDRD) Af Amer 63, Est GFR (MDRD) Non-Af 52 L, BUN/Creatinine Ratio 18.9, Glucose 201 H, Calcium 7.6 L 03/13/21 01:45: Troponin I 90.200 H* 03/13/21 05:40: WBC 20.5 H, RBC 4.90, Hgb 15.0, Hct 45.4, MCV 92.7, MCH 30.6, MCHC 33.0, Plt Count 229, MPV 9.6, Immature Gran % (Auto) 0.400, Neut % (Auto) 89.6 H, Lymph % (Auto) 4.1 L, [place] % (Auto) 5.8, Eos % (Auto) 0.0, Baso % (Auto) 0.1, Absolute Neuts (auto) 18.3 H, Nucleated RBC % 0 03/13/21 05:40: Troponin I > 200.000 H* 03/13/21 05:40: Sodium 137, Potassium 3.9, Chloride 105, Carbon Dioxide 25.0, Anion Gap 7, BUN 20 H, Creatinine 1.15 H, Est GFR (MDRD) Af Amer 60, Est GFR (MDRD) Non-Af 50 L, BUN/Creatinine Ratio 17.4, Glucose 248 H, Calcium 8.1 L, Total Bilirubin 0.60, Triglycerides 144, Cholesterol 158, LDL Cholesterol 89, VLDL Cholesterol 29, HDL Cholesterol 40 03/13/21 05:40: Magnesium 2.0 Rhythm: Normal sinus rhythm EKG: Evidence of recent anterior myocardial infarction Medical Necessity - Tobacco Use Smoking Status: Never smoker
[2021-03-13] MEDS: Carvedilol 3.125 MG TABLET PO ×2 (14:07→21:12)
[2021-03-13] MEDS: Calcium Carbonate 500 MG Tablet PO ×2 (14:07→20:04)
[2021-03-13] MEDS: Losartan Potassium 25 MG Tablet PO (14:07)
[2021-03-13] MEDS: Pantoprazole Sodium 40 MG Tablet PO (14:07)
[2021-03-13] MEDS: Aspirin 81 MG TAB.CHEW PO (14:07)
--- NOTE | 2021-03-13 16:18 | PCM.HP.STD ---
History of Present Illness The patient is a 71 year old F [] Past Medical History Past Medical History (Chronic Problems): Chronic Problems (Last Updated 03/13/21 @ 12:08 by Gissell Ramos) Presence of stent in coronary artery (Chronic ~03/13/21) Successful PCI of the culprit lesion, occluded mid LAD with predilatation using 2 x 20 mm balloon, followed by placement of 2.75 x 30 mm resolute/drug-eluting stent, overlapped proximally with a 3 x 18 mm resolute/drug-eluting stent and achievement of 0% stenosis with LAUREN III flow; Initially with occluded mid LAD LAUREN 0 flow post procedure achievement of LAUREN-3 flow. With resolution of ST segment elevation and resolution of symptoms of chest pain line per cardiac cath 03/13/21 Atherosclerotic heart disease of [place] coronary artery without angina pectoris (Chronic) Medical History: Medical History (Last Updated 03/13/21 @ 12:08 by Gissell Ramos) Presence of stent in coronary artery (Chronic) Onset Date: ~03/13/21 Z95.5 Successful PCI of the culprit lesion, occluded mid LAD with predilatation using 2 x 20 mm balloon, followed by placement of 2.75 x 30 mm resolute/drug-eluting stent, overlapped proximally with a 3 x 18 mm resolute/drug-eluting stent and achievement of 0% stenosis with LAUREN III flow; Initially with occluded mid LAD LAUREN 0 flow post procedure achievement of LAUREN-3 flow. With resolution of ST segment elevation and resolution of symptoms of chest pain line per cardiac cath 03/13/21 Atherosclerotic heart disease of [place] coronary artery without angina pectoris (Chronic) I25.[address] elevation myocardial infarction (STEMI) of anterior wall (Acute) I21.09 HTN (hypertension) I10 Allergies erythromycin lactobionate [From Erythrocin] Allergy (Verified 03/12/21 23:13) Swelling Penicillins Allergy (Verified 03/12/21 23:13) Swelling Home Medications: Ambulatory Orders Medication Instructions Recorded Ascorbic Acid [Vitamin C] 500 mg PO DAILY@0800 08/03/15 Cholecalciferol (VIT D3) [Vitamin 2,000 unit PO DAILY 08/03/15 D] Fluticasone 0.05% [Flonase Nasal 2 spray NASAL DAILY 08/03/15 [place]] Multivitamin [Daily Multiple 1 each PO DAILY 08/03/15 Vitamin] Losartan Potassium [Cozaar] 25 mg PO DAILY 08/21/15 Metoprolol Tartrate 25 mg PO DAILY 12/25/16 Surgical History: Surgical History Presence of coronary angioplasty implant and graft Onset Date: ~03/13/21 Z95.5 Successful PCI of the culprit lesion, occluded mid LAD with predilatation using 2 x 20 mm balloon, followed by placement of 2.75 x 30 mm resolute/drug-eluting stent, overlapped proximally with a 3 x 18 mm resolute/drug-eluting stent and achievement of 0% stenosis with LAUREN III flow; Initially with occluded mid LAD LAUREN 0 flow post procedure achievement of LAUREN-3 flow. With resolution of ST segment elevation and resolution of symptoms of chest pain line per cardiac cath 03/13/21 Surgical History: cholecystectomy, tonsillectomy Smoking Status: Never smoker - *Family History Maternal History Items: Heart Disease Patient Problems: Active and Suspected Problems (Last Updated 03/13/21 @ 12:08 by Gissell Ramos) Acute ST elevation myocardial infarction (STEMI) of anterior wall (Acute) - Physical Exam Vitals/I&O's: Vital Signs Temp Pulse Resp BP Pulse Ox 98.2 F 100 17 156/94 H 94 03/13/21 15:00 03/13/21 16:00 03/13/21 15:00 03/13/21 15:00 03/13/21 15:00 Oxygen Flow Rate (L/min) 2 Oxygen Delivery Method Room Air Weight: 72.7 kg Body Mass Index (BMI) 25.1 Intake and Output for Last 24 Hours 03/11/21 03/12/21 03/13/21 23:59 23:59 23:59 Intake Total 1310.7 / 1310.7 Output Total 200 / 200 Balance 1110.7 / 1110.7 General: Cooperative, Confused, Disoriented, Lethargic, Non-Cooperative Laboratory Results 03/12/21 23:27: WBC 13.1 H, RBC 4.82, Hgb 15.0, Hct 44.7, MCV 92.7, MCH 31.1, MCHC 33.6, RDW Std Deviation 42.8, RDW Coeff of Obi 12.6, Plt Count 285, MPV 9.4, Immature Gran % (Auto) 0.300, Neut % (Auto) 54.4, Lymph % (Auto) 35.5, [place] % (Auto) 5.9, Eos % (Auto) 3.4, Baso % (Auto) 0.5, Absolute Neuts (auto) 7.1, Absolute Lymphs (auto) 4.66 H, Nucleated RBC % 0 03/12/21 23:27: PT 12.2, INR 1.0, APTT 23.4 L 03/12/21 23:27: Sodium 137, Potassium 2.8 L, Chloride 105, Carbon Dioxide 23.0, Anion Gap 9, BUN 24 H, Creatinine 1.25 H, Estim Creat Clear Calc 40.72, Est GFR (MDRD) Af Amer 55 L, Est GFR (MDRD) Non-Af 45 L, BUN/Creatinine Ratio 19.2, Glucose 149 H, Calcium 9.0, Troponin I 0.034 03/13/21 01:45: WBC 18.9 H, RBC 4.60, Hgb 14.3, Hct 43.6, MCV 94.8, MCH 31.1, MCHC 32.8, RDW Std Deviation 43.8, RDW Coeff of Obi 12.6, Plt Count 188, MPV 9.8, Immature Gran % (Auto) 0.500, Neut % (Auto) 86.0 H, Lymph % (Auto) 7.7 L, [place] % (Auto) 4.1, Eos % (Auto) 1.4, Baso % (Auto) 0.3, Absolute Neuts (auto) 16.3 H, Absolute Lymphs (auto) 1.46, Nucleated RBC % 0 03/13/21 01:45: PT 14.5, INR 1.2, APTT > 250.0 H* 03/13/21 01:45: Sodium 135 L, Potassium 3.5, Chloride 104, Carbon Dioxide 22.0, Anion Gap 9, BUN 21 H, Creatinine 1.11 H, Estim Creat Clear Calc 45.86, Est GFR (MDRD) Af Amer 63, Est GFR (MDRD) Non-Af 52 L, BUN/Creatinine Ratio 18.9, Glucose 201 H, Calcium 7.6 L 03/13/21 01:45: Troponin I 90.200 H* 03/13/21 05:40: WBC 20.5 H, RBC 4.90, Hgb 15.0, Hct 45.4, MCV 92.7, MCH 30.6, MCHC 33.0, RDW Std Deviation 43.1, RDW Coeff of Obi 12.7, Plt Count 229, MPV 9.6, Immature Gran % (Auto) 0.400, Neut % (Auto) 89.6 H, Lymph % (Auto) 4.1 L, [place] % (Auto) 5.8, Eos % (Auto) 0.0, Baso % (Auto) 0.1, Absolute Neuts (auto) 18.3 H, Absolute Lymphs (auto) 0.83, Nucleated RBC % 0 03/13/21 05:40: Troponin I > 200.000 H* 03/13/21 05:40: Sodium 137, Potassium 3.9, Chloride 105, Carbon Dioxide 25.0, Anion Gap 7, BUN 20 H, Creatinine 1.15 H, Estim Creat Clear Calc 44.27, Est GFR (MDRD) Af Amer 60, Est GFR (MDRD) Non-Af 50 L, BUN/Creatinine Ratio 17.4, Glucose 248 H, Calcium 8.1 L, Total Bilirubin 0.60, AST 456 H, ALT 74 H, Alkaline Phosphatase 128 H, Total Protein 7.4, Albumin 3.8, Globulin 3.6, Albumin/Globulin Ratio 1.1, Triglycerides 144, Cholesterol 158, LDL Cholesterol 89, VLDL Cholesterol 29, HDL Cholesterol 40 03/13/21 05:40: Magnesium 2.0 Current Medications Ascorbic Acid (Ascorbic Acid 500 Mg Tablet) 500 mg PO DAILY@0800 [facility] Aspirin (Aspirin 81 Mg Tab.Chew) 81 mg PO DAILY@0800 [facility] Atorvastatin Calcium (Atorvastatin Calcium 40 Mg Tablet) 40 mg PO QHS [facility] Calcium Carbonate (Calcium Carbonate 500 Mg Tablet) 500 mg PO Q4H PRN PRN PRN Reason: HEARTBURN OR INDIGESTION Last Admin: 03/13/21 14:07 Dose: 500 mg Documented by: Carvedilol (Carvedilol 3.125 Mg Tablet) 3.125 mg PO BID [facility] Last Admin: 03/13/21 14:07 Dose: 3.125 mg Documented by: Cholecalciferol (Cholecalciferol (Vit D3) 25 Mcg Tablet (1,000 Units)) [facility] Fluticasone Propionate (Fluticasone 0.05% 1 [place] Nasal.Sry) 2 spray NASAL DAILY [facility] Sodium Chloride () 250 mls @ 15 mls/hr IV .[id number] PRN PRN Reason: Saline Flush Sodium Chloride () 250 mls @ 15 mls/hr IV .[id number] PRN PRN Reason: Additional IVPB Infusion Losartan Potassium (Losartan Potassium 25 Mg Tablet) 25 mg PO DAILY [facility] Last Admin: 03/13/21 14:07 Dose: 25 mg Documented by: Multivitamins (Multivitamins,Therapeutic Tablet) [facility] Ondansetron HCl (Ondansetron 4 Mg/2 Ml Vial) 4 mg IV Q8H PRN PRN PRN Reason: NAUSEA/VOMITING Last Admin: 03/13/21 02:06 Dose: 4 mg Documented by: Pantoprazole Sodium (Pantoprazole Sodium 40 Mg Tablet) 40 mg PO DAILY [facility] Last Admin: 03/13/21 14:07 Dose: 40 mg Documented by: Sodium Chloride (0.9% Saline Lock 10 Ml Syringe) 10 - 40 ml IV UD PRN PRN Reason: SALINE FLUSH Last Admin: 03/13/21 02:06 Dose: 40 ml Documented by: Ticagrelor (Ticagrelor 90 Mg Tablet) 90 mg PO BID [facility] Last Admin: 03/13/21 09:47 Dose: 90 mg Documented by: Assessment/Plan All Active Problems (Last Updated 03/13/21 @ 12:08 by Gissell Ramos) Acute ST elevation myocardial infarction (STEMI) of anterior wall (Acute)
[2021-03-14] VITALS (25 sets, daily range): BP systolic 92–147; BP diastolic 51–100; PULSE 90–115; RESP 13–26; TEMP 36.4–37.1; O2SAT 94–98
--- NOTE | 2021-03-14 02:32 | EKG12_ITS ---
Test Reason : EKG CHANGES Blood Pressure : / mmHG Vent. Rate : 103 BPM Atrial Rate : 103 BPM P-R Int : 132 ms QRS Dur : 072 ms QT Int : 350 ms P-R-T Axes : 041 005 062 degrees QTc Int : 458 ms Sinus tachycardia Low voltage QRS Septal infarct , age undetermined Lateral injury pattern * ACUTE [place] Abnormal ECG Confirmed by KATHIE BEEBE, MAXWELL ([id number]), industrial editor HI PAULINO ([id number]) on 03/19/2021 2:07:55 PM Referred By: Theresa Carlton Confirmed By:MAXWELL VÁZQUEZ MD
[2021-03-14 03:44] LABS: Hematocrit 44.1 % (37-47); Hemoglobin 14.6 g/dL (12.0-15.0); Mean Corp Hgb Conc 33.1 g/dL (32-36); Mean Corpuscular Hgb 31.1 pg (27.0-32.0); Mean Corpuscular Volume 93.8 fL (81-99); Mean Platelet Vol. 9.6 fl (6.2-12.0); Platelet Count 246 K/mm3 (150-450); RBC Distribution Width CV 12.8 % (11.6-14.6); RBC Distribution Width SD 44.3 fl (35.1-43.9); White Blood Count 22.8 K/mm3 (4.4-11.0)
[2021-03-14 04:01] LABS: ALB/GLOB Ratio 0.9 RATIO (0.9-2.4); AST(SGOT) 196 U/L (15-37); Alanine Aminotransfer ALT/SGPT 61 U/L (13-56); Albumin, Serum 3.5 g/dL (3.2-5.0); Alkaline Phosphatase 97 U/L (45-117); Anion Gap 6 (5-15); BUN 15 mg/dL (7-18); BUN/Creat Ratio 15.4 RATIO (10-20); Calcium,Total 8.8 mg/dL (8.5-10.1); Chloride 103 mmol/L (98-107); Creatinine, Serum 0.98 mg/dL (0.55-1.02); EST Glomerular Filtration Rate 60 mL/min (>60); Est Glom Filt Rate - Afr Amer 73 mL/min (>60); Estimated Creatinine Clearance 51.94 ml/min; Globulin 3.8 g/dL (2.2-4.2); Glucose 143 mg/dL (74-106); Protein, Total 7.3 g/dL (6.4-8.2); Sodium Level 135 mmol/L (136-145)
[2021-03-14] MEDS: TICAGRELOR 90 MG TABLET PO ×2 (08:27→21:23)
[2021-03-14] MEDS: Aspirin 81 MG TAB.CHEW PO (08:27)
[2021-03-14] MEDS: LORazepam 0.5 MG Tablet PO (09:57)
[2021-03-14] MEDS: Ascorbic Acid 500 MG Tablet PO (09:58)
[2021-03-14] MEDS: 0.9% Saline Lock 10 ML Syringe IV (09:58)
[2021-03-14] MEDS: Cholecalciferol (VIT D3) 25 MCG TABLET (1,000 UNITS) 50 MCG PO (09:58)
[2021-03-14] MEDS: Multivitamins,Therapeutic Tablet 1 TABLET PO (09:58)
[2021-03-14] MEDS: Carvedilol 3.125 MG TABLET PO ×2 (09:58→21:23)
[2021-03-14] MEDS: Pantoprazole Sodium 40 MG Tablet PO (09:58)
[2021-03-14] MEDS: Losartan Potassium 25 MG Tablet PO (09:59)
--- NOTE | 2021-03-14 10:21 | PN.CARD_ITS ---
Objective: Vital Signs Temp Pulse Resp BP Pulse Ox 98.7 F 100 20 H 135/100 H 98 03/14/21 04:45 03/14/21 07:00 03/14/21 07:00 03/14/21 07:00 03/14/21 07:21 Oxygen Flow Rate (L/min) 2 Oxygen Delivery Method Nasal Cannula Weight: 158 lb 4.67 oz Body Mass Index (BMI) 25.1 Intake and Output for Last 24 Hours 03/12/21 03/13/21 03/14/21 23:59 23:59 23:59 Intake Total 2506.95 / 2506.95 0 / 0 Output Total 1100 / 1100 200 / 200 Balance 1406.95 / 1406.95 -200 / -200 Neck: Supple Lungs: Clear to auscultation Cardiovascular: Regular Rhythm, Normal S1, Normal S2 Abdomen: Bowel Sounds Present, Non Tender Neurological: No Focal Motor or Sensory Deficit Psych/Mental Status: Appropriate, Anxious 03/13/21 05:40: Magnesium 2.0 03/14/21 03:30: WBC 22.8 H, RBC 4.70, Hgb 14.6, Hct 44.1, MCV 93.8, MCH 31.1, MCHC 33.1, Plt Count 246, MPV 9.6 03/14/21 03:30: Sodium 135 L, Potassium 4.0, Chloride 103, Carbon Dioxide 26.0, Anion Gap 6, BUN 15, Creatinine 0.98, Est GFR (MDRD) Af Amer 73, Est GFR (MDRD) Non-Af 60, BUN/Creatinine Ratio 15.4, Glucose 143 H, Calcium 8.8, Total Bilirubin 0.90 Rhythm: Underlying normal sinus rhythm EKG: Of recent anteroseptal and lateral [place] ECHO: Anteroapical and septal hypokinesia with ejection fraction of around 35- 40% Medical Necessity - Tobacco Use Smoking Status: Never smoker Assessment/Plan 71-year-old patient, seen and evaluated today at bedside in the intensive care unit along with the nursing staff And cardiac care plan discussed in detail Patient repeatedly denied any symptoms of chest pain Her symptoms of epigastric discomfort improved on Protonix. She remains stable clinically, cardiac rhythm is sinus blood pressure stable Cardiac exam essentially normal She has bruises on the right groin as she was on Integrilin which is discontinued. There is no hematoma at the groin and assessment and plan; 1. Patient with ST elevation [place] with successful PCI and stent of the culprit lesion LAD and placement of 2 drug-eluting stent 2. Patient currently on dual antiplatelet therapy with Brilinta/aspirin continue. 3. Echocardiographic evaluation showed segmental wall motion changes noted in t he anterior septal with EF in the range of 35-40% We will continue to monitor the patient in the intensive care unit over the night and will follow up with current medication.
--- NOTE | 2021-03-14 10:51 | PN_ITS ---
Patient Problems: Active and Suspected Problems (Last Updated 03/13/21 @ 12:08 by Gissell Ramos) Acute ST elevation myocardial infarction (STEMI) of anterior wall (Acute) Subjective: Feels better, no issues overnight. Denies any chest pain or shortness of breath currently. Vitals/I&O's: Vital Signs Temp Pulse Resp BP Pulse Ox 98.7 F 100 20 H 135/100 H 98 03/14/21 04:45 03/14/21 07:00 03/14/21 07:00 03/14/21 07:00 03/14/21 07:21 Oxygen Flow Rate (L/min) 2 Oxygen Delivery Method Nasal Cannula Weight: 158 lb 4.67 oz Body Mass Index (BMI) 25.1 Intake and Output for Last 24 Hours 03/12/21 03/13/21 03/14/21 23:59 23:59 23:59 Intake Total 2506.95 / 2506.95 0 / 0 Output Total 1100 / 1100 200 / 200 Balance 1406.95 / 1406.95 -200 / -200 General: Alert, Oriented x3, Cooperative, No apparent distress HEENT: Atraumatic, PERRLA, EOMI, Normocephalic Oral: Moist Mucosa Neck: Supple, No JVD Lungs: Clear to auscultation, Normal air movement, No rhonchi, No wheeze, No rales Cardiovascular: Regular rate, Regular Rhythm, Normal S1, Normal S2, No murmurs Abdomen: Soft, Non Tender, Non-Distended, No Hepato-splenomegaly Extremities: No edema, Capillary Refill Less than 3 Seconds Skin: No rashes, No breakdown Neurological: Neuro grossly intact, Sensory exam intact to light touch and pain Psych/Mental Status: Normal Affect, Appropriate Laboratory Results 03/13/21 05:40: Magnesium 2.0 03/14/21 03:30: WBC 22.8 H, RBC 4.70, Hgb 14.6, Hct 44.1, MCV 93.8, MCH 31.1, MCHC 33.1, RDW Std Deviation 44.3 H, RDW Coeff of Obi 12.8, Plt Count 246, MPV 9.6 03/14/21 03:30: Sodium 135 L, Potassium 4.0, Chloride 103, Carbon Dioxide 26.0, Anion Gap 6, BUN 15, Creatinine 0.98, Estim Creat Clear Calc 51.94, Est GFR (MDRD) Af Amer 73, Est GFR (MDRD) Non-Af 60, BUN/Creatinine Ratio 15.4, Glucose 143 H, Calcium 8.8, Total Bilirubin 0.90, AST 196 H, ALT 61 H, Alkaline Phosphatase 97, Total Protein 7.3, Albumin 3.5, Globulin 3.8, Albumin/Globulin Ratio 0.9 Current Medications Ascorbic Acid (Ascorbic Acid 500 Mg Tablet) 500 mg PO DAILY@0800 [facility] Last Admin: 03/14/21 09:58 Dose: 500 mg Documented by: Aspirin (Aspirin 81 Mg Tab.Chew) 81 mg PO DAILY@0800 [facility] Last Admin: 03/14/21 08:27 Dose: 81 mg Documented by: Atorvastatin Calcium (Atorvastatin Calcium 40 Mg Tablet) 40 mg PO QHS [facility] Last Admin: 03/13/21 21:12 Dose: Not Given Documented by: Calcium Carbonate (Calcium Carbonate 500 Mg Tablet) 500 mg PO Q4H PRN PRN PRN Reason: HEARTBURN OR INDIGESTION Last Admin: 03/13/21 20:04 Dose: 500 mg Documented by: Carvedilol (Carvedilol 3.125 Mg Tablet) 3.125 mg PO BID [facility] Last Admin: 03/14/21 09:58 Dose: 3.125 mg Documented by: Cholecalciferol (Cholecalciferol (Vit D3) 25 Mcg Tablet (1,000 Units)) [facility] Last Admin: 03/14/21 09:58 Dose: 50 mcg Documented by: Fluticasone Propionate (Fluticasone 0.05% 1 [place] Nasal.Sry) 2 spray NASAL DAILY [facility] Last Admin: 03/14/21 09:59 Dose: Not Given Documented by: Sodium Chloride () 250 mls @ 15 mls/hr IV .[id number] PRN PRN Reason: Saline Flush Sodium Chloride () 250 mls @ 15 mls/hr IV .[id number] PRN PRN Reason: Additional IVPB Infusion Losartan Potassium (Losartan Potassium 25 Mg Tablet) 25 mg PO DAILY [facility] Last Admin: 03/14/21 09:59 Dose: 25 mg Documented by: Multivitamins (Multivitamins,Therapeutic Tablet) [facility] Last Admin: 03/14/21 09:58 Dose: 1 tablet Documented by: Ondansetron HCl (Ondansetron 4 Mg/2 Ml Vial) 4 mg IV Q8H PRN PRN PRN Reason: NAUSEA/VOMITING Last Admin: 03/13/21 02:06 Dose: 4 mg Documented by: Pantoprazole Sodium (Pantoprazole Sodium 40 Mg Tablet) 40 mg PO DAILY [facility] Last Admin: 03/14/21 09:58 Dose: 40 mg Documented by: Sodium Chloride (0.9% Saline Lock 10 Ml Syringe) 10 - 40 ml IV UD PRN PRN Reason: SALINE FLUSH Last Admin: 03/14/21 09:58 Dose: 10 ml Documented by: Ticagrelor (Ticagrelor 90 Mg Tablet) 90 mg PO BID [facility] Last Admin: 03/14/21 08:27 Dose: 90 mg Documented by: STROKE Vital Signs/Narrative: Vital Signs Pulse Resp BP Pulse Ox 03/14/21 07:21 98 03/14/21 07:00 100 20 H 135/100 H 97 Medical Necessity - Tobacco Use Smoking Status: Never smoker Assessment/Plan All Active Problems (Last Updated 03/13/21 @ 12:08 by Gissell Ramos) Acute ST elevation myocardial infarction (STEMI) of anterior wall (Acute) 1. Anterior lateral STEMI status post heart cath with CAPRI x2/HTN -Repeat EKG in the morning demonstrated ST elevations however these were somewhat improved from prior and without any symptomatic changes no intervention was indicated -Continue with aspirin, Lipitor, Brilinta -Continue with Coreg and losartan -No longer on amiodarone and her magnesium level is normal, she did necessitate a dose of amiodarone for V. fib 2. Leukocytosis -Likely a stress response -Remains afebrile without any other signs of infection -Continue to monitor DVT: Heparin Inpatient E&M: 13406 Subs Hosp L2
[2021-03-14] MEDS: Atorvastatin Calcium 40 MG Tablet PO (21:23)
[2021-03-15] VITALS (13 sets, daily range): BP systolic 91–119; BP diastolic 58–88; PULSE 88–104; RESP 13–24; TEMP 36.7–37.1; O2SAT 93–98
[2021-03-15 05:33] LABS: Absolute Lymphocyte Count 2.01 X10^3/uL (0.83-4.51); Absolute Neutrophil Count 10.2 X10^3/uL (2.0-7.7); Basophil# 0.03 X10^3/uL; Basophil% 0.2 % (0-1); Eosinophil# 0.17 X10^3/uL; Eosinophils% 1.3 % (0-5); Hematocrit 43.2 % (37-47); Hemoglobin 14.1 g/dL (12.0-15.0); Lymphocyte # 2.01 X10^3/ul (0.83-4.51); Mean Corp Hgb Conc 32.6 g/dL (32-36); Mean Corpuscular Hgb 30.5 pg (27.0-32.0); Mean Corpuscular Volume 93.5 fL (81-99); Mean Platelet Vol. 9.5 fl (6.2-12.0); Monocyte# 1.05 X10^3/uL; Monocyte% 7.8 % (0-10); NRBC Flagged by Analyzer 0 % (0-5); Neutrophil # 10.15 X10^3/uL (2.7-7.7); Neutrophil % 75.5 % (47-70); Platelet Count 238 K/mm3 (150-450); RBC Distribution Width CV 13.1 % (11.6-14.6); RBC Distribution Width SD 44.8 fl (35.1-43.9); Red Blood Count 4.62 M/mm3 (4.2-5.4); White Blood Count 13.4 K/mm3 (4.4-11.0)
[2021-03-15 05:46] LABS: Anion Gap 7 (5-15); BUN 19 mg/dL (7-18); BUN/Creat Ratio 19.4 RATIO (10-20); Calcium,Total 8.3 mg/dL (8.5-10.1); Chloride 105 mmol/L (98-107); Creatinine, Serum 0.98 mg/dL (0.55-1.02); EST Glomerular Filtration Rate 60 mL/min (>60); Est Glom Filt Rate - Afr Amer 72 mL/min (>60); Estimated Creatinine Clearance 51.94 ml/min; Glucose 126 mg/dL (74-106); Sodium Level 135 mmol/L (136-145)
[2021-03-15] MEDS: Aspirin 81 MG TAB.CHEW PO (08:47)
[2021-03-15] MEDS: Losartan Potassium 25 MG Tablet PO (08:47)
[2021-03-15] MEDS: Ascorbic Acid 500 MG Tablet PO (08:47)
[2021-03-15] MEDS: Multivitamins,Therapeutic Tablet 1 TABLET PO (08:47)
[2021-03-15] MEDS: Carvedilol 3.125 MG TABLET PO (08:47)
[2021-03-15] MEDS: Pantoprazole Sodium 40 MG Tablet PO (08:47)
[2021-03-15] MEDS: TICAGRELOR 90 MG TABLET PO (08:48)
[2021-03-15] MEDS: Cholecalciferol (VIT D3) 25 MCG TABLET (1,000 UNITS) 50 MCG PO (08:48)
--- NOTE | 2021-03-15 09:54 | DCINST_ITS ---
- Discharge Diagnoses Current Active Problems: Current Active and Chronic Problems (Last Updated 03/13/21 @ 12:08 by Gissell Ramos) Acute ST elevation myocardial infarction (STEMI) of anterior wall (Acute) You will use the following diet at home:: Cardiac Your food should be the consistency of: Regular Your liquids should be the consistency of: Regular/Thin Discharge Activity: Return to Normal Activity Call your doctor if your incision/area has: Increased Pain/ Swelling, Increased Redness Call your doctor if you observe: Fever of 101 or Higher, Shortness of breath, Dizziness, Fainting spells, Swelling in the ankles, Chest pain, Increased palpitations (irregular heartbeat) Allergies/Adverse Reactions: Allergies erythromycin lactobionate [From Erythrocin] Allergy (Verified 03/12/21 23:13) Swelling Penicillins Allergy (Verified 03/12/21 23:13) Swelling Medications to take at Discharge Ascorbic Acid [Vitamin C] 500 mg PO DAILY@0800 08/03/15 Cholecalciferol (VIT D3) [Vitamin D3] 2,000 unit PO DAILY 08/03/15 Fluticasone 0.05% [Flonase Nasal [place]] 2 spray NASAL DAILY 08/03/15 Multivitamin [Daily Multiple Vitamin] 1 each PO DAILY 08/03/15 Losartan Potassium [Cozaar] 25 mg PO DAILY 08/21/15 Aspirin [Aspirin, Baby] 81 mg PO DAILY@0800 #30 tab.chew 03/15/21 Atorvastatin Calcium [Lipitor] 40 mg PO QHS #30 tablet 03/15/21 Carvedilol [Coreg (Beta Mike)] 3.125 mg PO BID #60 tablet 03/15/21 Pantoprazole Sodium [Protonix] 40 mg PO DAILY #30 tablet 03/15/21 Ticagrelor [Brilinta] 90 mg PO BID #60 tablet 03/15/21 The following prescriptions were given: Aspirin [Aspirin, Baby] 81 mg PO DAILY@0800 #30 tab.chew Transmission Status: Pending to [facility] Ticagrelor [Brilinta] 90 mg PO BID #60 tablet Transmission Status: Pending to [facility] Carvedilol [Coreg (Beta Mike)] 3.125 mg PO BID #60 tablet Transmission Status: Pending to [facility] RD Atorvastatin Calcium [Lipitor] 40 mg PO QHS #30 tablet Transmission Status: Pending to [facility] Pantoprazole Sodium [Protonix] 40 mg PO DAILY #30 tablet Transmission Status: Pending to [facility] Primary Care Physician: Francisco Miller III, MD [Primary Care Provider] - Please follow up with your Primary Care Physician in: 3-5 days Test Results: Test results from this visit will be discussed in further detail at your follow- up appointment, if applicable. Please Follow Up With: Roe Loza MD When: 1 week
--- NOTE | 2021-03-15 10:01 | PN.CARD_ITS ---
Objective: Vital Signs Temp Pulse Resp BP Pulse Ox 98.1 F 102 H 21 H 119/81 H 97 03/15/21 03:00 03/15/21 09:00 03/15/21 09:00 03/15/21 09:00 03/15/21 09:00 Oxygen Flow Rate (L/min) 2 Oxygen Delivery Method Room Air Weight: 159 lb 13.362 oz Body Mass Index (BMI) 25.1 Intake and Output for Last 24 Hours 03/13/21 03/14/21 03/15/21 23:59 23:59 23:59 Intake Total 2506.95 / 2506.95 1200 / 1200 605 / 605 Output Total 1100 / 1100 200 / 200 650 / 650 Balance 1406.95 / 1406.95 1000 / 1000 -45 / -45 General: Healthy Appearing HEENT: Atraumatic Neck: Supple, No Lymph Node Enlargement Cardiovascular: Regular Rhythm, Normal S1, Normal S2, No Murmurs, No Rubs, No Gallops Abdomen: Bowel Sounds Present Extremities: No Cyanosis, No Clubbing, No edema Musculoskeletal: No Erythema 03/15/21 05:20: WBC 13.4 H, RBC 4.62, Hgb 14.1, Hct 43.2, MCV 93.5, MCH 30.5, MCHC 32.6, Plt Count 238, MPV 9.5, Immature Gran % (Auto) 0.200, Neut % (Auto) 75.5 H, Lymph % (Auto) 15.0 L, [place] % (Auto) 7.8, Eos % (Auto) 1.3, Baso % (Auto) 0.2, Absolute Neuts (auto) 10.2 H, Nucleated RBC % 0 03/15/21 05:20: Sodium 135 L, Potassium 4.0, Chloride 105, Carbon Dioxide 23.0, Anion Gap 7, BUN 19 H, Creatinine 0.98, Est GFR (MDRD) Af Amer 72, Est GFR (MDRD) Non-Af 60, BUN/Creatinine Ratio 19.4, Glucose 126 H, Calcium 8.3 L Rhythm: Normal sinus EKG: Evidence of a STEMI repeat EKG recent anterolateral SD change. ECHO: Anteroseptal and apical hypokinesia with reduced ejection fraction around 40% Medical Necessity - Tobacco Use Smoking Status: Never smoker Assessment/Plan 71 year-old patient with acute anterolateral myocardial infarction Underwent successful PCI and use of drug-eluting stent to the mid LAD Echocardiographic evaluation showed ejection fraction in the range of around 40% and she has been on medical therapy Today she had no symptoms of chest pain. Also denies any epigastric discomfort And she been stable hemodynamically Assessment and plan/recommendations; 1. Patient will continue on dual antiplatelet therapy with aspirin and Brilinta for 1 year, low-dose aspirin 81 mg indefinitely 2. High-dose statin atorvastatin 3. Continue on DEVI inhibitor as well as beta-sami Also Protonix 40 mg as she had symptoms of epigastric discomfort From cardiac standpoint patient stable clinically she can be discharged And to follow-up with the forklift truck mechanic here at the [place] [facility] which can be set up 1 to 2 weeks Also patient will be set up for phase 1 cardiac rehab program. Cardiac care plan discussed with the nursing staff as well as with the patient.
--- NOTE | 2021-03-15 10:02 | DS.PCM_ITS ---
Discharge Date and Diagnosis - Problem List Patient Problems: Active and Suspected Problems (Last Updated 03/13/21 @ 12:08 by Gissell Ramos) Acute ST elevation myocardial infarction (STEMI) of anterior wall (Acute) Date of Admission: 03/12/21 Date of Discharge: 03/15/21 - Primary Discharge Diagnosis Acute Problems: Active Problems (Last Updated 03/13/21 @ 12:08 by Gissell Ramos) Acute ST elevation myocardial infarction (STEMI) of anterior wall (Acute) - Secondary Discharge Diagnosis Chronic Problems: Chronic Problems (Last Updated 03/13/21 @ 12:08 by Gissell Ramos) Presence of stent in coronary artery (Chronic ~03/13/21) Successful PCI of the culprit lesion, occluded mid LAD with predilatation using 2 x 20 mm balloon, followed by placement of 2.75 x 30 mm resolute/drug- eluting stent, overlapped proximally with a 3 x 18 mm resolute/drug-eluting stent and achievement of 0% stenosis with LAUREN III flow; Initially with occluded mid LAD LAUREN 0 flow post procedure achievement of LAUREN-3 flow. With resolution of ST segment elevation and resolution of symptoms of chest pain line per cardiac cath 03/13/21 Atherosclerotic heart disease of [place] coronary artery without angina pectoris (Chronic) Hospital Course and Treatment Imaging Results: Clinical Impression(s) from Imaging Studies Chest X-Ray 03/12/21 23:22 IMPRESSION: Normal. at 0002 Reported and signed by: Everett Calhoun MD Electronically Signed: Everett Calhoun MD at 0:01 EDT Tel , Service support , Echocardiogram 03/13/21 12:16 Interpretation Summary Moderate LV dilation with severe Anteroapical/septal Hypokinesia The estimated ejection fraction is EF 35-40% Defintty used to delinate ,the endocardium and measurment of LV systolic function Ordering Physician: Theresa Carlton Referring Physician: FRANCISCO GARCIA Performed By: Colleen Arreguin [facility] Cardiac Cath Report PCI Report: Procedure performed; 1. Left heart catheterization 2. Successful PCI of the culprit lesion, occluded mid LAD with predilatation using 2 x 20 mm balloon, followed by placement of 2.75 x 30 mm resolute/drug- eluting stent, overlapped proximally with a 3 x 18 mm resolute/drug-eluting stent and achievement of 0% stenosis with LAUREN III flow Initially with occluded mid LAD LAUREN 0 flow post procedure achievement of LAUREN-[address] flow. With resolution of ST segment elevation and resolution of symptoms of chest pain line. 3. Measurement of LVEDP 4. Left ventriculogram 5. Right common femoral artery angiography and placement of Perclose to close arteriotomy site. Preprocedure diagnosis; 71-year-old patient who presented to the ER at the [facility] severe retrosternal chest pain that started this evening around 11:00 according to patient with diaphoresis feeling nauseated Electrocardiogram in the ER showed evidence of ST elevation in the anterolateral lead with remarkable reciprocal change in the inferior lead Patient was very unstable she had recurrent episode of V. fib x4 requiring shock and also started on amiodarone IV 2 boluses were given. With 2 g of magnesium was given in the ER and patient was brought to the Permit Agent as an emergency. Patient had a history of CAD and had a prior cardiac catheterization done at [facility] however she did not have any stent or bypass surgery. Patient had history of diabetes mellitus which is controlled with diet according to her she is not a smoker. Interventional plan and catheters; 1. 6 Welsh 3.5 EBU guide 2. 5 Welsh JR4 catheter 3. 5 Welsh pigtail catheter 4. 0.014 BMW universal straight 190 cm 0.014 run-through extra floppy 180 cm straight Patient brought as an emergency to the Permit Agent, risk-benefit procedure explained in detail and informed consent was obtained We will proceed with guide catheter which is 6 Welsh EBU guide catheter engaged the left coronary ostium without difficulty Angiographic view revealed occluded mid LAD. Proceed with BMW wire across the lesion in the mid LAD, followed by predilatation using 2 x 20 mm balloon Followed by placement of a drug-eluting stent resolute 2.75 x 30. Overlap with 3 x 18 mm resolute and achieve LAUREN-3 flow, symptoms of chest pain resolved. This patient was given Brilinta 180 mg in the ER, aspirin 324, heparin a total of 5000 in the ER additional 3000 heparin was given in the Permit Agent with ACT level above 250 and patient was started on Integrilin 2 boluses of followed by infusion of 2 mcg. Hemodynamic; LV systolic function preserved with ejection fraction in the range of 55 to 60% There is no systolic gradient across the aortic valve LVEDP is around 21 mmHg Coronary angiography; 1. Left main coronary artery normal angiographically, trifurcating into LAD, ramus intermedius, left circumflex Left anterior descending artery large vessel occluded in the midportion at the site of the septal and a diagonal branch. Following the PCI LAD is a large vessel with abundant septal branches and reaching all the way to the apex 2. Ramus intermedius is a small to moderate sized vessel norm angiographically The left circumflex is a small normal angiographically 3. RCA is large dominant and normal angiographically. Perclose used to close arteriotomy site with no complication in the Permit Agent Conclusion recommendations; STEMI/acute anterolateral myocardial infarction with occluded mid LAD with successful PCI as explained Patient will be on dual antiplatelet therapy with Brilinta/aspirin for 1 year and to follow-up with aspirin indefinitely We will add beta-mike carvedilol and DEVI inhibitor and high-dose statin This is a very high risk patient who presented with severe symptoms of chest pain with ST elevation DC and V. fib x4 requiring multiple shocks in the ER and started on amiodarone and magnesium We will evaluate by echocardiogram in the morning and will continue to monitor electrolytes magnesium and potassium. Operations: None Procedures: 2-D Echocardiogram, Cardiac catheterization Summary of Care Provided: Per HPI: Patient is a 71-year-old female with a significant history of coronary artery disease; and hypertension who presents to the emergency department with excruciating substernal chest pain that started about 10 minutes before presentation. She describes her chest pain as pain. Her chest pain radiates to her left arm where she says she has numbness. Also she has some back pain that had disappeared by the time she got to the emergency department. Her chest pain is constant with no ameliorating or aggravating factors. Also, she had chest pain about 1-2 days before presentation but her chest pain went away only for it to reoccur 10 minutes before this presentation as stated above. Hospital Course: 1. Anterior lateral STEMI status post heart cath with CAPRI x2/DBO-78-alqn-old female with a history of coronary artery disease and a previous non-STEMI presented to the hospital with chest pain after about 10 minutes prior to presentation. She did have EKG changes consistent with a STEMI as well as an elevated troponin and she was taken to the Permit Agent where she had 2 stents placed to the LAD. She denies any chest pain or shortness of breath she continues to have ST changes on her telemetry and EKGs which is not unexpected. I discussed with her the plan for discharge and she expressed understanding the risk benefits of going home and would like to go home today. I discussed with her the need to continue both her aspirin and her Brilinta follow-up with cardiology in 1 week. Also discussed with her the change in her medications and lifestyle modifications that she may need to make to further reduce her risk for a cardiac event in the future. She did have some leukocytosis which was not related to infection, it was likely a stress response and it has essentially resolved without any direct intervention. Patient Problems: Active and Suspected Problems (Last Updated 03/13/21 @ 12:08 by Gissell Ramos) Acute ST elevation myocardial infarction (STEMI) of anterior wall (Acute) - Physical Exam Vitals/I&O's: Vital Signs Temp Pulse Resp BP Pulse Ox 98.1 F 102 H 21 H 119/81 H 97 03/15/21 03:00 03/15/21 09:00 03/15/21 09:00 03/15/21 09:00 03/15/21 09:00 Oxygen Flow Rate (L/min) 2 Oxygen Delivery Method Room Air Weight: 159 lb 13.362 oz Body Mass Index (BMI) 25.1 Intake and Output for Last 24 Hours 03/13/21 03/14/21 03/15/21 23:59 23:59 23:59 Intake Total 2506.95 / 2506.95 1200 / 1200 605 / 605 Output Total 1100 / 1100 200 / 200 650 / 650 Balance 1406.95 / 1406.95 1000 / 1000 -45 / -45 General: Alert, Oriented x3, Cooperative, No apparent distress HEENT: Atraumatic, PERRLA, EOMI, Normocephalic Oral: Moist Mucosa Neck: Supple, No JVD Lungs: Clear to auscultation, Normal air movement, No rhonchi, No wheeze, No rales Cardiovascular: Regular rate, Regular Rhythm, Normal S1, Normal S2, No murmurs Abdomen: Soft, Non Tender, Non-Distended, No Hepato-splenomegaly Extremities: No edema, Capillary Refill Less than 3 Seconds Skin: No rashes, No breakdown Neurological: Neuro grossly intact, Sensory exam intact to light touch and pain Psych/Mental Status: Normal Affect, Appropriate Laboratory Results 03/15/21 05:20: WBC 13.4 H, RBC 4.62, Hgb 14.1, Hct 43.2, MCV 93.5, MCH 30.5, MCHC 32.6, RDW Std Deviation 44.8 H, RDW Coeff of Obi 13.1, Plt Count 238, MPV 9.5, Immature Gran % (Auto) 0.200, Neut % (Auto) 75.5 H, Lymph % (Auto) 15.0 L, [place] % (Auto) 7.8, Eos % (Auto) 1.3, Baso % (Auto) 0.2, Absolute Neuts (auto) 10.2 H, Absolute Lymphs (auto) 2.01, Nucleated RBC % 0 03/15/21 05:20: Sodium 135 L, Potassium 4.0, Chloride 105, Carbon Dioxide 23.0, Anion Gap 7, BUN 19 H, Creatinine 0.98, Estim Creat Clear Calc 51.94, Est GFR (MDRD) Af Amer 72, Est GFR (MDRD) Non-Af 60, BUN/Creatinine Ratio 19.4, Glucose 126 H, Calcium 8.3 L Current Medications Ascorbic Acid (Ascorbic Acid 500 Mg Tablet) 500 mg PO DAILY@0800 [facility] Last Admin: 03/15/21 08:47 Dose: 500 mg Documented by: Aspirin (Aspirin 81 Mg Tab.Chew) 81 mg PO DAILY@0800 [facility] Last Admin: 03/15/21 08:47 Dose: 81 mg Documented by: Atorvastatin Calcium (Atorvastatin Calcium 40 Mg Tablet) 40 mg PO QHS [facility] Last Admin: 03/14/21 21:23 Dose: 40 mg Documented by: Calcium Carbonate (Calcium Carbonate 500 Mg Tablet) 500 mg PO Q4H PRN PRN PRN Reason: HEARTBURN OR INDIGESTION Last Admin: 03/13/21 20:04 Dose: 500 mg Documented by: Carvedilol (Carvedilol 3.125 Mg Tablet) 3.125 mg PO BID [facility] Last Admin: 03/15/21 08:47 Dose: 3.125 mg Documented by: Cholecalciferol (Cholecalciferol (Vit D3) 25 Mcg Tablet (1,000 Units)) [facility] Last Admin: 03/15/21 08:48 Dose: 50 mcg Documented by: Fluticasone Propionate (Fluticasone 0.05% 1 [place] Nasal.Sry) 2 spray NASAL DAILY [facility] Last Admin: 03/15/21 08:52 Dose: Not Given Documented by: Sodium Chloride () 250 mls @ 15 mls/hr IV .[id number] PRN PRN Reason: Saline Flush Sodium Chloride () 250 mls @ 15 mls/hr IV .[id number] PRN PRN Reason: Additional IVPB Infusion Lorazepam (Lorazepam 0.5 Mg Tablet) 0.5 mg PO Q8H PRN PRN PRN Reason: ANXIETY Losartan Potassium (Losartan Potassium 25 Mg Tablet) 25 mg PO DAILY [facility] Last Admin: 03/15/21 08:47 Dose: 25 mg Documented by: Multivitamins (Multivitamins,Therapeutic Tablet) [facility] Last Admin: 03/15/21 08:47 Dose: 1 tablet Documented by: Ondansetron HCl (Ondansetron 4 Mg/2 Ml Vial) 4 mg IV Q8H PRN PRN PRN Reason: NAUSEA/VOMITING Last Admin: 03/13/21 02:06 Dose: 4 mg Documented by: Pantoprazole Sodium (Pantoprazole Sodium 40 Mg Tablet) 40 mg PO DAILY [facility] Last Admin: 03/15/21 08:47 Dose: 40 mg Documented by: Sodium Chloride (0.9% Saline Lock 10 Ml Syringe) 10 - 40 ml IV UD PRN PRN Reason: SALINE FLUSH Last Admin: 03/14/21 09:58 Dose: 10 ml Documented by: Ticagrelor (Ticagrelor 90 Mg Tablet) 90 mg PO BID [facility] Last Admin: 03/15/21 08:48 Dose: 90 mg Documented by: Discharge Activity: Return to Normal Activity Call your doctor if your incision/area has: Increased Pain/ Swelling, Increased Redness Call your doctor if you observe: Fever of 101 or Higher, Shortness of breath, Dizziness, Fainting spells, Swelling in the ankles, Chest pain, Increased palpitations (irregular heartbeat) Home Medications: Medications to take at Discharge Ascorbic Acid [Vitamin C] 500 mg PO DAILY@0800 08/03/15 Cholecalciferol (VIT D3) [Vitamin D3] 2,000 unit PO DAILY 08/03/15 Fluticasone 0.05% [Flonase Nasal [place]] 2 spray NASAL DAILY 08/03/15 Multivitamin [Daily Multiple Vitamin] 1 each PO DAILY 08/03/15 Losartan Potassium [Cozaar] 25 mg PO DAILY 08/21/15 Aspirin [Aspirin, Baby] 81 mg PO DAILY@0800 #30 tab.chew 03/15/21 Atorvastatin Calcium [Lipitor] 40 mg PO QHS #30 tablet 03/15/21 Carvedilol [Coreg (Beta Mike)] 3.125 mg PO BID #60 tablet 03/15/21 Pantoprazole Sodium [Protonix] 40 mg PO DAILY #30 tablet 03/15/21 Ticagrelor [Brilinta] 90 mg PO BID #60 tablet 03/15/21 Following Prescriptions Were Given to Patient: Aspirin [Aspirin, Baby] 81 mg PO DAILY@0800 #30 tab.chew Transmission Status: Pending to [facility] Ticagrelor [Brilinta] 90 mg PO BID #60 tablet Transmission Status: Pending to [facility] Carvedilol [Coreg (Beta Mike)] 3.125 mg PO BID #60 tablet Transmission Status: Pending to [facility] Atorvastatin Calcium [Lipitor] 40 mg PO QHS #30 tablet Transmission Status: Pending to [facility] Pantoprazole Sodium [Protonix] 40 mg PO DAILY #30 tablet Transmission Status: Pending to [facility] Primary Care Physician: Francisco Garcia III, MD [Primary Care Provider] - Please follow up with your Primary Care Physician in: 3-5 days Please Follow Up With: Roe Loza MD When: 1 week Disposition: Home Minutes spent on discharge:: 35 Patient Condition:: Stable Medical Necessity - Tobacco Use Smoking Status: Never smoker Meaningful Use Info Meaningful Use Diagnoses (Choose all that apply): None applicable Inpatient E&M: 38590 Disch Hosp
== END 2021-03-15 11:10 | disposition home or self-care (01) | DRG 246 ==
LOC: ED 23:36 → ICU 23:55
PROVIDERS: Internal Medicine; Admitting Provider Hospitalist; Emergency Provider Emergency Medicine; PCP Family Medicine; Referring Provider Internal Medicine Interventional Cardiology; Visit Provider Family Medicine
DX: I21.09 ST elevation (STEMI) myocardial infarction involving other coronary artery of anterior wall (principal); I49.01 Ventricular fibrillation; I25.10 Atherosclerotic heart disease of native coronary artery without angina pectoris; I10 Essential (primary) hypertension; D72.829 Elevated white blood cell count, unspecified; E87.6 Hypokalemia; Z79.899 Other long term (current) drug therapy
CPT/HCPCS: 71045; 80048; 80053; 80061; 83735; 84484; 85025; 85027; 85610; 85730; 92941; 93005; 93306; 93458; 97802; 99152; 99285; J7030; Q9957; Q9967; A4216; C1725; C1760; C1769; C1874; C1887; C8929; C9606; J1327; J1940; J2310; J2405; J3475; J3490

== ENCOUNTER 2021-04-23 14:06 | Emergency (ER) | payer MEDICARE, BC, SELFPAY ==
[2021-03-25 09:27] VITALS: BMI 25.1
[2021-04-23 14:07] VITALS: BP 168/100; PULSE 97; RESP 16; TEMP 36.4; O2SAT 99; BMI 24.5
--- NOTE | 2021-04-23 14:32 | EX.ED.UPPERE ---
HPI History of Present Illness Chief Complaint: Laceration Informant: patient Occured/Mechanism Comment: Cut finger while trimming hedges Onset/Context/Timing Current Severity: Mild Maximum Severity: Mild Narrative Narrative: Patient presents with laceration to the right fifth finger. She states she cut herself when trimming hedges today. She recently had an WI and is currently on blood thinners. She was unable to the bleeding controlled at home. She does not believe she needs stitches. She is unsure of her last tetanus update. [facility] Medical History Atherosclerotic heart disease of [place] coronary artery without angina pectoris Essential hypertension History of hiatal hernia History of ST elevation myocardial infarction (STEMI) Presence of stent in coronary artery (~03/13/21) Home Medications ascorbic acid (vitamin C) [Vitamin C] 500 mg PO DAILY@0800 08/03/15 [History Last Taken Unknown] cholecalciferol (vitamin D3) [Vitamin D3] 2,000 unit PO DAILY 08/03/15 [History Last Taken Unknown] multivitamin [Daily Multiple] 1 ea PO DAILY 08/03/15 [History Last Taken Unknown] losartan 25 mg PO DAILY 08/21/15 [History Last Taken 08/21/15 25] aspirin 81 mg PO DAILY@0800 #30 tab.chew 03/15/21 [Rx Last Taken Unknown] atorvastatin 20 mg tablet 20 mg PO QHS #30 tab 03/25/21 [Rx Last Taken Unknown] fluticasone propionate 50 mcg/actuation nasal spray,suspension 2 spray INTRANASAL DAILY PRN 03/25/21 [History Last Taken Unknown] pantoprazole 40 mg tablet,delayed release 40 mg PO DAILY PRN tablet 03/25/21 [History Last Taken Unknown] carvedilol 3.125 mg tablet 3.125 mg PO BID #60 tablet 03/30/21 [Rx Last Taken Unknown] ticagrelor 90 mg tablet 90 mg PO BID #60 tablet 03/30/21 [Rx Last Taken Unknown] Allergy/AdvReac Type Severity Reaction Status Date / Time erythromycin lactobionate Allergy Swelling Verified 04/23/21 14:51 [From Erythrocin] Penicillins Allergy Swelling Verified 04/23/21 14:51 Surgical History History of cholecystectomy Presence of coronary angioplasty implant and graft (~03/13/21) Social History Smoking Status: Never smoker alcohol intake: never substance use type: does not use caffeine: Yes Type: coffee Number of servings: 2 ROS ROS ED Constitutional Constitutional ED: Denies chills or fever(s) Eyes Eyes: Denies change in vision ENT ENT ED: Denies sore throat Cardiovascular Cardiovascular: Denies chest pain Respiratory/Chest Respiratory/Chest: Denies cough or dyspnea Gastrointestinal Gastrointestinal: Denies abdominal pain, diarrhea, nausea or vomiting Genitourinary Genitourinary ED: Denies dysuria Musculoskeletal Musculoskeletal: Denies back pain Integumentary Reports rash and other Details: Right fifth finger laceration Neurologic Neurologic: Denies headache(s), paresthesias or weakness Psychiatric Psychiatric: Denies anxiety or depression Endocrine Endocrinology: Denies polydipsia or polyuria Allergic/Immunologic Allergic/Immunologic ED: Denies urticaria EXAM Physical Exam Const Vital Signs: 04/23/21 14:07 Temperature 97.5 F L Temperature Source Temporal Pulse Rate 97 Respiratory Rate 16 Blood Pressure 168/100 H Blood Pressure Mean 122 Pulse Ox 99 Oxygen Delivery Method Room Air Positive well nourished and well developed General Appearance ED: well developed HEENT Reports normocephalic and head/scalp atraumatic Eyes PERRL and EOMs intact bilaterally Neck supple Resp normal respiratory effort Cardio regular rate and regular rhythm Extremity Extremity Narrative: 1 cm superficial flap laceration along the ulnar border of the right fifth finger. Bleeding controlled at this time. Full range of motion with normal cap refill and sensation distally. Neuro oriented x3 and no sensory deficits noted Sensorium / Orientation: alert Motor Exam: strength 5/5 throughout Psych mental status grossly normal Skin no rashes or lesions noted Skin Narrative: Laceration as above MDM MDM Treatment and Re-Evaluation Comments:: Tetanus update is provided. Wound is cleansed and sealed with Dermabond. Discharge Plan Triage Chief Complaint: Laceration ED Provider: Dana Dudley Dx/Rx/DC Orders Clinical Impression: Finger laceration Instructions: ED Laceration, Hand: All Closures Prescriptions: No Action pantoprazole 40 mg tablet,delayed release (DR/EC) 40 mg PO DAILY PRN (Reason: Acid Reflux) RF: 0 atorvastatin 20 mg tablet 20 mg PO QHS Qty: 30 RF: 6 multivitamin [Daily Multiple] 1 EACH tablet 1 ea PO DAILY RF: 0 ascorbic acid (vitamin C) [Vitamin C] 500 MG tablet 500 mg PO DAILY@0800 RF: 0 cholecalciferol (vitamin D3) [Vitamin D3] 1,000 UNIT tablet 2,000 unit PO DAILY RF: 0 fluticasone propionate 50 mcg/actuation spray,suspension 2 spray intranasal DAILY PRN (Reason: Congestion) RF: 0 losartan 25 MG tablet 25 mg PO DAILY RF: 0 aspirin 81 MG tablet,chewable 81 mg PO DAILY@0800 Qty: 30 RF: 0 carvedilol 3.125 mg tablet 3.125 mg PO BID Qty: 60 RF: 11 ticagrelor 90 mg tablet 90 mg PO BID Qty: 60 RF: 11 Primary Care Provider: Francisco Miller III Referrals: Francisco Miller III, MD [Primary Care Provider] - As Needed Disposition Disposition: Home, self care
[2021-04-23] MEDS: Diphth,Pertuss(Acell),Tet Vac 0.5 ML Vial IM (14:38)
[2021-04-23 15:21] VITALS: RESP 18
== END 2021-04-23 15:21 | disposition home or self-care (01) ==
LOC: ED 15:12
PROVIDERS: Emergency Provider Emergency Medicine; PCP Family Medicine
DX: S61.216A Laceration without foreign body of right little finger without damage to nail, initial encounter (principal); I25.10 Atherosclerotic heart disease of native coronary artery without angina pectoris; I10 Essential (primary) hypertension; Z79.899 Other long term (current) drug therapy; Z23 Encounter for immunization; W29.3XXA Contact with powered garden and outdoor hand tools and machinery, initial encounter; Y93.89 Activity, other specified; Y92.007 Garden or yard of unspecified non-institutional (private) residence as the place of occurrence of the external cause; Y99.8 Other external cause status
CPT/HCPCS: 12001; 90715; 99282

== ENCOUNTER → 2021-06-23 09:53 | Outpatient (CLI) | payer MEDICARE, BC, SELFPAY ==
--- NOTE | 2021-06-23 09:54 | ECHOD_ITS ---
Reason For Study: CHF Procedure This was a 2D Doppler, Color Flow transthoracic echocardiogram. The exam was of adequate technical quality. Exam performed in department. Left Ventricle Normal LV size. Moderate segmental systolic dysfunction (see wall motion). The estimated ejection fraction is 35 %. Diastolic function is indeterminate. Mid-Anterior : Akinetic. Mid-Lateral : Hypokinetic. Mid-Posterior: Hypokinetic. Mid-Inferior: Hypokinetic. Mid-inferoseptal : Akinetic. Mid-anteroseptal : Akinetic. [place] : Akinetic. Right Ventricle Normal RV size. Normal systolic function. Atria Normal left atrium. Normal right atrium. No doppler evidence for ASD. Mitral Valve There is no mitral annular calcification. Anterior leaflet diffuse mitral valve thickening. Mild- Moderate (1-2+) mitral valve insufficiency. Tricuspid Valve Normal tricuspid valve. Trivial tricuspid valve insufficiency. Right ventricular systolic pressure estimated to be 31 mmHg. Aortic Valve Trisinus/trileaflet aortic valve. Normal aortic valve. Pulmonic Valve The pulmonic valve is not well visualized. Great Vessels Normal sized aortic root. Pericardium/Pleural No pericardial effusion. MMode/2D Measurements & Calculations LVIDd: 4.5 cm IVSd: 0.87 cm Ao root diam: 2.7 cm LVIDs: 2.9 cm LVPWd: 0.84 cm FS: 35.3 % LAV(MOD-bp): 40.3 ml LVAd ap4: 28.2 cm2 LVAd ap2: 31.2 cm2 LAV(MOD-bp) Indexed: 22.5 ml/m2 LVLd ap4: 7.3 cm LVLd ap2: 8.3 cm LAV(MOD-sp2): 38.8 ml EDV(MOD-sp4): 88.5 ml EDV(MOD-sp2): 100.5 ml LAV(MOD-sp4): 34.1 ml EDV(sp4-el): 92.4 ml EDV(sp2-el): 99.1 ml LVAs ap4: 21.2 cm2 LVAs ap2: 23.3 cm2 LVLs ap4: 6.6 cm LVLs ap2: 7.3 cm ESV(MOD-sp4): 56.1 ml ESV(MOD-sp2): 62.5 ml ESV(sp4-el): 58.3 ml ESV(sp2-el): 63.6 ml EF(MOD-sp4): 36.6 % EF(MOD-sp2): 37.8 % EF(sp4-el): 36.9 % SV(MOD-sp4): 32.4 ml SV(MOD-sp2): 38.0 ml SV(sp4-el): 34.1 ml LA dimension(2D): 3.6 cm LA A4 area: 12.6 cm2 RA A4 area: 9.3 cm2 Time Measurements MV dec time: 0.18 sec Doppler Measurements & Calculations MV E max clyde: 70.9 cm/sec Lat Peak E' Clyde: 7.8 cm/sec Med Peak E' Clyde: 4.8 cm/sec MV A max clyde: 94.7 cm/sec E/E' lat: 9.1 E/E' med: 14.6 MV E/A: 0.75 Ao V2 max: 100.2 cm/sec LV V1 max: 73.0 cm/sec PA V2 max: 59.4 cm/sec Ao max P.0 mmHg LV V1 max P.1 mmHg TR max clyde: 263.1 cm/sec TR max P.7 mmHg ECHO/Echo Complete Interpretation Summary Moderate segmental systolic dysfunction (see wall motion). The estimated ejection fraction is 35 %. Anterior leaflet diffuse mitral valve thickening. Mild-Moderate (1-2+) mitral valve insufficiency. Trivial tricuspid valve insufficiency. Right ventricular systolic pressure estimated to be 31 mmHg. Diastolic function is indeterminate. Ordering Physician: Shiva Pink Referring Physician: Ernesto Gillis Performed By: Rosemarie Ng, DERRICK, RVT
== END ==
PROVIDERS: PCP Family Medicine; Referring Provider Nurse Practitioner Family; Visit Provider Nurse Practitioner Family
DX: I25.10 Atherosclerotic heart disease of native coronary artery without angina pectoris (principal); I25.5 Ischemic cardiomyopathy
CPT/HCPCS: 93306

== ENCOUNTER → 2021-09-21 07:40 | Outpatient (CLI) | payer MEDICARE, BC, SELFPAY ==
[2021-09-21 09:17] LABS: AST(SGOT) 16 U/L (15-37); Alanine Aminotransfer ALT/SGPT 25 U/L (13-56); Albumin, Serum 3.6 g/dL (3.2-5.0); Alkaline Phosphatase 125 U/L (45-117); Bilirubin, Direct 0.16 mg/dL (0.00-0.30); Cholesterol 98 mg/dL (200); Globulin 4.1 g/dL (2.2-4.2); High Density Lipoprotein 40 mg/dL; Protein, Total 7.7 g/dL (6.4-8.2); Triglycerides 100 mg/dL; Very Low Density Lipoprotein 20 mg/dL (5-40)
== END ==
PROVIDERS: PCP Family Medicine; Referring Provider Nurse Practitioner Family; Visit Provider Nurse Practitioner Family
DX: I10 Essential (primary) hypertension (principal); I25.10 Atherosclerotic heart disease of native coronary artery without angina pectoris; I25.5 Ischemic cardiomyopathy; Z95.5 Presence of coronary angioplasty implant and graft
CPT/HCPCS: 36415; 80061; 80076

== ENCOUNTER → 2021-09-22 09:46 | Outpatient (CLI) | payer MEDICARE, BC, SELFPAY ==
[2021-06-24 09:33] VITALS: BMI 24.5
--- NOTE | 2021-09-22 09:48 | ECHOL_ITS ---
Reason For Study: CHF Procedure This was a limited 2D transthoracic echocardiogram. The exam was of adequate technical quality. Limited views were obtained. Exam performed in department. Left Ventricle Normal LV size. Moderate segmental systolic dysfunction (see wall motion). The estimated ejection fraction is 35 %. Unable to assess diastolic dysfunction. Mid-Anterior : Hypokinetic. Mid-Lateral : Hypokinetic. Mid-Posterior: Hypokinetic. Mid-Inferior: Hypokinetic. Mid-inferoseptal : Akinetic. Mid-anteroseptal : Akinetic. Anterior Beryl : Hypokinetic. Inferior Beryl : Akinetic. Lateral Beryl : Hypokinetic. Septal Ber[place] : Akinetic. Right Ventricle Normal RV size. Normal systolic function. Atria The left atrium is mildly enlarged. Normal right atrium. Mitral Valve There is no mitral annular calcification. Normal mitral valve. Tricuspid Valve Normal tricuspid valve. Aortic Valve Trisinus/trileaflet aortic valve. Normal aortic valve. Pulmonic Valve The pulmonic valve is not well visualized. Great Vessels The aortic root is not well visualized. Pericardium/Pleural No pericardial effusion. MMode/2D Measurements & Calculations LVIDd: 4.3 cm IVSd: 0.88 cm LVAd ap4: 26.4 cm2 LVIDs: 2.9 cm LVPWd: 0.90 cm LVLd ap4: 7.6 cm FS: 31.3 % EDV(MOD-sp4): 75.0 ml EDV(sp4-el): 78.3 ml LVAs ap4: 17.6 cm2 LVLs ap4: 6.6 cm ESV(MOD-sp4): 38.8 ml ESV(sp4-el): 39.6 ml EF(MOD-sp4): 48.3 % EF(sp4-el): 49.4 % LVAd ap2: 25.7 cm2 SV(MOD-sp4): 36.2 ml SV(MOD-sp2): 37.4 ml LVLd ap2: 7.8 cm EDV(MOD-sp2): 70.7 ml EDV(sp2-el): 71.6 ml LVAs ap2: 16.2 cm2 LVLs ap2: 6.4 cm ESV(MOD-sp2): 33.3 ml ESV(sp2-el): 34.8 ml EF(MOD-sp2): 52.9 % SV(sp4-el): 38.7 ml ECHO/Echo, Limited Study Interpretation Summary Limited views were obtained. Moderate segmental systolic dysfunction (see wall motion). The estimated ejection fraction is 35 %. The left atrium is mildly enlarged. Unable to assess diastolic dysfunction. Ordering Physician: Shiva Pink Referring Physician: MAIKEL ALANIS Performed By: Janee Gomez, DERRICK, RVT
== END ==
PROVIDERS: PCP Family Medicine; Referring Provider Nurse Practitioner Family; Visit Provider Nurse Practitioner Family
DX: I25.10 Atherosclerotic heart disease of native coronary artery without angina pectoris (principal); I25.5 Ischemic cardiomyopathy; I11.0 Hypertensive heart disease with heart failure; I50.9 Heart failure, unspecified; Z95.5 Presence of coronary angioplasty implant and graft
CPT/HCPCS: 93308

== ENCOUNTER 2021-12-23 09:52 | Outpatient (CLI) | payer MEDICARE, BC, SELFPAY ==
--- NOTE | 2021-12-23 09:56 | ECHOL_ITS ---
Reason For Study: ASHD, CHF Procedure This was a limited 2D transthoracic echocardiogram. Limited views were obtained. Exam performed in department. Left Ventricle Normal LV size. Mild segmental systolic dysfunction (see wall motion). The estimated ejection fraction is 45 %. Mid-Anterior : Hypokinetic. Mid-Inferior: Hypokinetic. Mid-inferoseptal : Akinetic. Mid-anteroseptal : Akinetic. Anterior Somers : Akinetic. Inferior Somers : Akinetic. Lateral Somers : Hypokinetic. Septal Somers : Akinetic. Right Ventricle Normal systolic function. Atria Normal left atrium. Normal right atrium. Mitral Valve There is no mitral annular calcification. Normal mitral valve. Tricuspid Valve Normal tricuspid valve. Aortic Valve Trisinus/trileaflet aortic valve. Normal aortic valve. Pulmonic Valve The pulmonic valve is not well visualized. Great Vessels The aortic root is not well visualized. Pericardium/Pleural No pericardial effusion. MMode/2D Measurements & Calculations LVIDd: 4.0 cm IVSd: 1.0 cm LAV(MOD-bp): 36.7 ml LVIDs: 3.0 cm LVPWd: 1.0 cm LAV(MOD-bp) Indexed: 20.5 ml/m2 RVDd: 2.0 cm FS: 24.8 % LAV(MOD-sp2): 33.7 ml LAV(MOD-sp4): 31.9 ml LA dimension(2D): 3.0 cm LA A4 area: 12.4 cm2 RA A4 area: 8.6 cm2 ECHO/Echo, Limited Study Interpretation Summary Limited views were obtained. Mild segmental systolic dysfunction (see wall motion). The estimated ejection fraction is 45 %. Ordering Physician: Shiva Pink Referring Physician: Ernesto Gillis Performed By: Rosemarie Ng RDCS, RVT
== END 2021-12-23 23:59 | disposition short-term general hospital (02) ==
LOC: CVS 09:55
PROVIDERS: PCP Family Medicine; Referring Provider Nurse Practitioner Family; Visit Provider Nurse Practitioner Family
DX: I25.10 Atherosclerotic heart disease of native coronary artery without angina pectoris (principal); I25.5 Ischemic cardiomyopathy; I10 Essential (primary) hypertension; Z95.5 Presence of coronary angioplasty implant and graft
CPT/HCPCS: 93308

== ENCOUNTER 2022-02-23 09:09 | Outpatient (CLI) | payer MEDICARE, BC, SELFPAY ==
[2022-02-23 11:15] LABS: AST(SGOT) 19 U/L (15-37); Alanine Aminotransfer ALT/SGPT 30 U/L (13-56); Albumin, Serum 3.6 g/dL (3.2-5.0); Alkaline Phosphatase 107 U/L (45-117); Anion Gap 5 (5-15); BUN 17 mg/dL (7-18); BUN/Creat Ratio 15.6 RATIO (10-20); Bilirubin, Direct 0.12 mg/dL (0.00-0.30); Calcium,Total 8.9 mg/dL (8.5-10.1); Chloride 107 mmol/L (98-107); Cholesterol 151 mg/dL (200); Creatinine, Serum 1.09 mg/dL (0.55-1.02); EST Glomerular Filtration Rate 53 mL/min (>60); Est Glom Filt Rate - Afr Amer 64 mL/min (>60); Globulin 3.7 g/dL (2.2-4.2); Glucose 103 mg/dL (74-106); High Density Lipoprotein 42 mg/dL; Potassium 4.3 mmol/L (3.5-5.1); Protein, Total 7.3 g/dL (6.4-8.2); Sodium Level 138 mmol/L (136-145); Triglycerides 110 mg/dL; Very Low Density Lipoprotein 22 mg/dL (5-40)
== END 2022-02-23 23:59 | disposition home or self-care (01) ==
LOC: LAB 09:10
PROVIDERS: Nurse Practitioner Family; PCP Family Medicine; Visit Provider Internal Medicine Cardiovascular Disease
DX: I25.5 Ischemic cardiomyopathy (principal); I10 Essential (primary) hypertension; I25.10 Atherosclerotic heart disease of native coronary artery without angina pectoris; E78.00 Pure hypercholesterolemia, unspecified; Z95.5 Presence of coronary angioplasty implant and graft
CPT/HCPCS: 36415; 80048; 80061; 80076

== ENCOUNTER → 2022-05-13 | Outpatient (CLI) | payer MEDICARE, BC, SELFPAY ==
[2022-05-13 09:16] LABS: Anion Gap 5 (5-15); BUN 15 mg/dL (7-18); BUN/Creat Ratio 14.9 RATIO (10-20); Calcium,Total 8.8 mg/dL (8.5-10.1); Chloride 107 mmol/L (98-107); Creatinine, Serum 1.01 mg/dL (0.55-1.02); EST Glomerular Filtration Rate 57 mL/min (>60); Est Glom Filt Rate - Afr Amer 69 mL/min (>60); Glucose 107 mg/dL (74-106); Potassium 4.7 mmol/L (3.5-5.1); Sodium Level 137 mmol/L (136-145)
== END | disposition home or self-care (01) ==
LOC: LAB 08:38
PROVIDERS: PCP Family Medicine; Referring Provider Nurse Practitioner Family; Visit Provider Nurse Practitioner Family
DX: I10 Essential (primary) hypertension (principal); I25.5 Ischemic cardiomyopathy; Z95.5 Presence of coronary angioplasty implant and graft
CPT/HCPCS: 36415; 80048

== ENCOUNTER 2022-11-08 17:13 | Emergency (ER) | payer MEDICARE, BC, SELFPAY ==
[2022-11-08 17:13] VITALS: BP 134/78; PULSE 88; RESP 16; TEMP 36.6; O2SAT 98; BMI 24.7
--- NOTE | 2022-11-08 17:55 | RAD_ITS ---
STUDY: X-RAY - RIGHT ANKLE REASON FOR EXAM: Female, 72 years old. INJURY TECHNIQUE: 3 view(s) of the ankle. COMPARISON: None. FINDINGS: There is demineralization of the visualized distal tibia and fibula. There are fractures of the medial and posterior malleoli of the distal tibia. There is fracture of the lateral malleolus of the distal fibula. Normal tibiotalar articulation and ankle mortise. Normal visualized talus and calcaneus. The visualized subtalar, talonavicular, calcaneocuboid and tarsal articulations are normal. There is lateral soft tissue swelling. There is joint effusion. RAD/Ankle min 3 Views IMPRESSION: Trimalleolar fracture. Electronically Signed: Jonh Almendarez MD at 18:22 EST ,
--- NOTE | 2022-11-08 19:51 | ED.VIS.LOWEX ---
HPI History of Present Illness HPI Narrative: Slipped and fell injuring her right ankle multiple hours ago. No other injuries. Did not hit her head. Chief Complaint: Lower Extremity Injury Informant: patient Occured/Mechanism Mechanism/Context: Yes injury and Yes blunt trauma Onset/Context/Timing Onset: Today and Hours Context: Sudden Onset Timing: Continuous Quality of Pain: Aching Current Severity: Mild Associated Symptoms Associated Symptoms: Negative for Parasthesia, Weakness or Loss of Funtion Narrative Narrative: 72-year-old female history of prior NM with CAD 2 stents. On Plavix. She was outside slipped on the ground landed on her right ankle awkwardly since that times had limited pain and swelling. Did not hit her head. No LOC. States she has been able to walk on it. Has never had an ankle fracture. Denies any other complaints. Prior similar symptoms: No Recent Illness/Hospitalization: No PFSH PFS Medical History Atherosclerotic heart disease of [place] coronary artery without angina pectoris Essential hypertension History of hiatal hernia History of ST elevation myocardial infarction (STEMI) HLD (hyperlipidemia) Presence of stent in coronary artery (~03/13/21) Home Medications ascorbic acid (vitamin C) 500 mg tablet (Vitamin C) 500 mg PO DAILY@0800 08/03/15 [History Last Taken Unknown] cholecalciferol (vitamin D3) 25 mcg (1,000 unit) tablet (Vitamin D3) 2,000 unit PO DAILY 08/03/15 [History Last Taken Unknown] multivitamin (Daily Multiple tablet) 1 ea PO DAILY 08/03/15 [History Last Taken Unknown] aspirin 81 mg chewable tablet 81 mg PO DAILY@0800 ##30 03/15/21 [Rx Last Taken Unknown] fluticasone propionate 50 mcg/actuation nasal spray,suspension 2 spray intranasal DAILY PRN Congestion 03/25/21 [History Last Taken Unknown] clopidogrel 75 mg tablet (Plavix) 75 mg PO QDAY #90 tabs 08/13/22 [Rx Last Taken Unknown] sacubitril 49 mg-valsartan 51 mg tablet (Entresto) 1 tab PO BID #180 tabs 08/18/22 [Rx Last Taken Unknown] atorvastatin 10 mg tablet 10 mg PO QHS #90 tabs 09/15/22 [Rx Last Taken Unknown] carvedilol 12.5 mg tablet 12.5 mg PO BID #180 tabs 10/07/22 [Rx Last Taken Unknown] hydrocodone-acetaminophen 5-325mg 5mg-325mg 1 tab PO Q4H PRN pain 4 days #14 tabs 11/08/22 [Rx Last Taken Unknown] Allergy/AdvReac Type Severity Reaction Status Date / Time erythromycin lactobionate Allergy Swelling Verified 11/08/22 17:13 [From Erythrocin] Penicillins Allergy Swelling Verified 11/08/22 17:13 lisinopril AdvReac Intermediate Cough Verified 11/08/22 17:13 Surgical History History of cholecystectomy Presence of coronary angioplasty implant and graft (~03/13/21) Social History Smoking Status: Never smoker alcohol intake: never substance use type: does not use caffeine: Yes Type: coffee Number of servings: 2 ROS ROS ED ROS Narrative No recent illness. Review of Systems ROS Unobtainable: Denies due to encephalopathy Constitutional Constitutional ED: Denies chills or fever(s) Eyes Eyes: Denies blurry vision ENT ENT ED: Denies ear pain Cardiovascular Cardiovascular: Denies chest pain Respiratory/Chest Respiratory/Chest: Denies cough or dyspnea Gastrointestinal Gastrointestinal: Denies abdominal pain Genitourinary Genitourinary ED: Denies dysuria or hematuria Musculoskeletal Musculoskeletal: Denies arthralgias Integumentary Denies abscess Neurologic Neurologic: Denies headache(s) Psychiatric Psychiatric: Denies anxiety Endocrine Endocrinology: Denies polydipsia Hematologic/Lymphatic Hematologic/Lymphatic: Denies easy bleeding Allergic/Immunologic Allergic/Immunologic ED: Denies mouth swelling or tongue swelling EXAM Physical Exam Narrative Exam Narrative: 8-year-old female no acute distress. Vital signs stable afebrile. Does not look septic or toxic no distress. H EENT exam unremarkable atraumatic. Pupils round react light. Nontender scalp. C-spine nontender. Trachea midline. Back and spine nontender. Lungs clear. Chest wall nontender. Heart regular rhythm no murmur. Rib cage nontender. Abdomen soft nontender. Pelvic girdle intact. Both upper extremities left lower extremity nontender full range of motion. No swelling. Right hip and knee are nontender normal range of motion. Right ankle is tender and swollen. Both medially and laterally. Normal DP pulse. Able to wiggle her toes. Normal touch sensation. No bony deformity of the foot. Const Vital Signs: 11/08/22 17:13 Temperature 97.8 F Temperature Source Temporal Pulse Rate 88 Respiratory Rate 16 Blood Pressure 134/78 H Blood Pressure Mean 96 Pulse Ox 98 Oxygen Delivery Method Room Air Positive well nourished and well developed; Negative for obese, cachectic, contractures or unkempt General Appearance ED: well developed and NAD; Negative for unkempt, cachectic or contractures Nutritional Appearance: Negative for cachectic or obese HEENT Reports moist mucous membranes normocephalic and atraumatic; Negative for trauma or tenderness Eyes PERRL General Eye ED: Negative for other Neck full ROM and supple Thyroid: Negative for tender or other Lymph Lymphatic: Negative for other Chest Wall inspection of chest normal and palpation of chest normal Chest: Negative for other Resp normal respiratory effort, no retractions and clear to auscultation bilaterally Effort and Inspection: Negative for pain with movement Auscultation: Negative for rales, rhonchi or wheezes Percussion: Negative for other Cardio regular rate, regular rhythm, S1 normal heart sound, S2 normal heart sound and no murmurs Rate: Negative for bradycardia Rhythm: Negative for abnormal rhythm Bruits: Negative for other GI non-tender, non-distended and no masses Inspection: Negative for abdominal distention Auscultation: normoactive bowel sounds Palpation: soft; Negative for tender or guarding Back/Spine no CVA tenderness General Back: Negative for CVA tenderness Cervical Spine: Negative for cervical spine tenderness Thoracic Spine / Upper Back: Negative for thoracic spinal tenderness Lumbar Spine / Lower Back: Negative for lumbar spinal tenderness Extremity normal to inspection and full ROM Extremity Narrative: Except tenderness and swelling of both the medial lateral aspect of her right ankle. Right knee and hip are nontender. Achilles is intact. DP pulse intact. Right foot nontender. No deformity. Able to wiggle her toes. Normal touch sensation. Skin intact. General Extremety ED: Yes edema and weight-bearing difficulty; Negative for cyanosis General Extremity: edema and weight-bearing difficulty; Negative for cyanosis Neuro oriented x3, CN's II-XII intact bilaterally and moves all extremities Sensorium / Orientation: alert, oriented to person, oriented to place and oriented to time; Negative for orientation impaired, confused, lethargic or stuporous Motor Exam: strength 5/5 throughout Psych mental status grossly normal Appearance: Negative for unkempt Speech: No other Mood & Affect: Negative for anxious Skin no wounds Lesions: no lesions Rashes: no rashes Trauma: Negative for abrasion, laceration or puncture MDM MDM MDM Narrative Medical decision making narrative: 72-year-old female slipped and fell injuring her right ankle. On x-ray has a trimalleolar fracture of the right ankle. She was placed in a well-padded short leg posterior splint using Ortho-Glass. Tolerated procedure well. She did not want anything for pain saying she is not really having much pain. She will be given crutches. Follow-up with orthopedics Dr. Barrera Radiography Diagnostic Testing: Clinical Impression(s) from Imaging Studies Ankle X-Ray 11/08/22 17:55 IMPRESSION: Trimalleolar fracture. Electronically Signed: Jonh Almendarez MD at 18:22 EST , Over theAnkle x-ray 3 views interpreted by myself and the radiologist shows a trimalleolar fracture of the medial, lateral and posterior malleoli. Ankle mortise is in good position. Constipation. Procedures Lower Extremity Splints Lower Extremity Splint: Orthoglass Location: Right Discharge Plan Triage Chief Complaint: Lower Extremity Injury ED Provider: Rajat Peacock Dx/Rx/DC Orders Clinical Impression: Fall, Closed trimalleolar fracture Instructions: ED Ankle Fracture Prescriptions: New hydrocodone-acetaminophen 5-325 mg tablet 1 tab PO Q4H PRN (Reason: pain) 4 Days Qty: 14 0RF No Action clopidogrel [Plavix] 75 mg tablet 75 mg PO QDAY Qty: 90 3RF multivitamin [Daily Multiple] 1 EACH tablet 1 ea PO DAILY ascorbic acid (vitamin C) [Vitamin C] 500 MG tablet 500 mg PO DAILY@0800 cholecalciferol (vitamin D3) [Vitamin D3] 1,000 UNIT tablet 2,000 unit PO DAILY fluticasone propionate 50 mcg/actuation spray,suspension 2 spray intranasal DAILY PRN (Reason: Congestion) aspirin 81 MG tablet,chewable 81 mg PO DAILY@0800 Qty: 30 0RF Entresto 49-51 mg tablet 1 tab PO BID Qty: 180 4RF atorvastatin 10 mg tablet 10 mg PO QHS Qty: 90 3RF carvedilol 12.5 mg tablet 12.5 mg PO BID Qty: 180 4RF Rx Instructions: must administer with a meal/food Stand Alone Forms: [employer] Primary Care Provider: Ernesto Gillis Referrals: Shawn Barrera DO [Med Staff - Active Staff] - As soon as possible Ernesto Gillis MD [Primary Care Provider] - Activity Restrictions/Additional Instructions: You have what is called a trimalleolar fracture of your right ankle. No weightbearing. You cannot walk on the splint I put chin. It is simply to immobilize the fracture. Call the orthopedic physician Dr. Barrera tomorrow to be seen as soon as possible. Ice and elevate. Tylenol for pain. Keep the splint dry and clean. And again no weightbearing on that ankle. Disposition Disposition: Home, Self Care
== END 2022-11-08 20:31 | disposition home or self-care (01) ==
PROVIDERS: Emergency Provider Emergency Medicine; PCP Family Medicine; Visit Provider Emergency Medicine
DX: S82.851A Displaced trimalleolar fracture of right lower leg, initial encounter for closed fracture (principal); I25.10 Atherosclerotic heart disease of native coronary artery without angina pectoris; I25.2 Old myocardial infarction; Z95.5 Presence of coronary angioplasty implant and graft; Z79.01 Long term (current) use of anticoagulants; W19.XXXA Unspecified fall, initial encounter
CPT/HCPCS: 73610; 99282

== ENCOUNTER 2023-02-20 13:39 | Emergency (ER) | payer MEDICARE, BC, SELFPAY ==
[2023-02-20 13:41] VITALS: BP 150/87; PULSE 80; RESP 18; TEMP 36.8; O2SAT 98; BMI 24.7
--- NOTE | 2023-02-20 13:53 | RAD_ITS ---
STUDY: X-RAY CHEST REASON FOR EXAM: Female, 73 years old. chest pain TECHNIQUE: Single AP portable view of the chest. COMPARISON: 03/12/2021 FINDINGS: The lungs are clear and expanded. There is no demonstrated pleural abnormality. Normal size heart. Normal mediastinum and jareth. Normal visualized pulmonary arteries. Normal visualized aortic arch and descending thoracic aorta. Normal visualized thoracic spine. Normal visualized ribs, clavicles, and shoulders. There is no demonstrated abnormality of the visualized soft tissue structures of the upper abdomen. RAD/Chest 1 View (Portable) IMPRESSION: Normal x-ray examination of the chest. Electronically Signed: Jorge Harrell MD at 14:19 EDT ,
--- NOTE | 2023-02-20 13:53 | EKG12_ITS ---
Test Reason : CHEST PAIN Blood Pressure : / mmHG Vent. Rate : 079 BPM Atrial Rate : 079 BPM P-R Int : 126 ms QRS Dur : 070 ms QT Int : 372 ms P-R-T Axes : 009 019 066 degrees QTc Int : 426 ms Normal sinus rhythm Low voltage QRS Septal infarct , age undetermined Abnormal ECG Confirmed by WENDY BEEBE, MAULIK ([id number]), video news editor JOSHUA CLOUD ([id number]) on 02/22/2023 8:34:03 AM Referred By: RODDY Confirmed By:MAULIK NGUYEN MD
[2023-02-20] MEDS: Aspirin 81 MG TAB.CHEW 324 MG PO (14:01)
[2023-02-20 14:12] LABS: Absolute Lymphocyte Count 1.66 X10^3/uL (0.83-4.51); Absolute Neutrophil Count 6.4 X10^3/uL (2.0-7.7); Basophil# 0.03 X10^3/uL; Basophil% 0.3 % (0-1); Eosinophil# 0.19 X10^3/uL; Eosinophils% 2.2 % (0-5); Hematocrit 43.8 % (37-47); Hemoglobin 13.6 g/dL (12.0-15.0); Lymphocyte # 1.66 X10^3/ul (0.83-4.51); Lymphocyte % 19.1 % (19-41); Mean Corp Hgb Conc 31.1 g/dL (32-36); Mean Corpuscular Hgb 30.4 pg (27.0-32.0); Mean Platelet Vol. 9.6 fl (6.2-12.0); Monocyte# 0.44 X10^3/uL; Monocyte% 5.1 % (0-10); NRBC Flagged by Analyzer 0 % (0-5); Neutrophil # 6.37 X10^3/uL (2.7-7.7); Neutrophil % 73.1 % (47-70); Platelet Count 265 K/mm3 (150-450); RBC Distribution Width CV 12.9 % (11.6-14.6); Red Blood Count 4.47 M/mm3 (4.2-5.4); White Blood Count 8.7 K/mm3 (4.4-11.0)
[2023-02-20 14:28] LABS: Anion Gap 4 (5-15); BUN 21 mg/dL (7-18); BUN/Creat Ratio 15.7 RATIO (10-20); Calcium,Total 8.4 mg/dL (8.5-10.1); Chloride 110 mmol/L (98-107); Creatinine, Serum 1.34 mg/dL (0.55-1.02); EST Glomerular Filtration Rate 41 mL/min (>60); Est Glom Filt Rate - Afr Amer 50 mL/min (>60); Estimated Creatinine Clearance 35.53 ml/min; Glucose 146 mg/dL (74-106); Potassium 3.8 mmol/L (3.5-5.1); Sodium Level 138 mmol/L (136-145); Troponin-I HS (w/2H Reflex) 6 pg/mL (3.0-54.0)
[2023-02-20] MEDS: 0.9% Normal Saline 1,000 ML 999 ML IV (15:19)
[2023-02-20 16:06] LABS: Reflex Troponin-HS? (from REC) Y
[2023-02-20 16:28] LABS: Troponin-I HS 8 pg/mL (3.0-54.0)
[2023-02-20 16:31] VITALS: BP 138/92; PULSE 62; RESP 15; O2SAT 98
--- NOTE | 2023-02-20 16:44 | EDS_ITS ---
HPI History of Present Illness Chief Complaint: Chest Pain Narrative Narrative: 73-year-old female presenting with left-sided chest pain. She is concerned because she has a history of [place]. She states it hurts in the left side of her chest and she can show me the bruising area where she has been seeing on this area. She states he is very physically active. She walks her dog vigorously. She states she exercises every day. She has not gotten into running just yet but has recovered well from previous [place]. Patient denies any shortness of breath, lightheadedness, diaphoresis, nausea. [facility] Medical History Atherosclerotic heart disease of [place] coronary artery without angina pectoris Essential hypertension History of hiatal hernia History of ST elevation myocardial infarction (STEMI) HLD (hyperlipidemia) Presence of stent in coronary artery (~03/13/21) Home Medications ascorbic acid (vitamin C) 500 mg tablet (Vitamin C) 500 mg PO DAILY@0800 08/03/15 [History Last Taken Unknown] cholecalciferol (vitamin D3) 25 mcg (1,000 unit) tablet (Vitamin D3) 2,000 unit PO DAILY 08/03/15 [History Last Taken Unknown] multivitamin (Daily Multiple tablet) 1 ea PO DAILY 08/03/15 [History Last Taken Unknown] aspirin 81 mg chewable tablet 81 mg PO DAILY@0800 ##30 03/15/21 [Rx Last Taken Unknown] fluticasone propionate 50 mcg/actuation nasal spray,suspension 2 spray intranasal DAILY PRN Congestion 03/25/21 [History Last Taken Unknown] clopidogrel 75 mg tablet (Plavix) 75 mg PO QDAY #90 tabs 08/13/22 [Rx Last Taken Unknown] sacubitril 49 mg-valsartan 51 mg tablet (Entresto) 1 tab PO BID #180 tabs 08/18/22 [Rx Last Taken Unknown] atorvastatin 10 mg tablet 10 mg PO QHS #90 tabs 09/15/22 [Rx Last Taken Unknown] carvedilol 12.5 mg tablet 12.5 mg PO BID #180 tabs 10/07/22 [Rx Last Taken Unknown] hydrocodone-acetaminophen 5-325mg 5mg-325mg 1 tab PO Q4H PRN pain 4 days #14 tabs 11/08/22 [Rx Last Taken Unknown] Allergy/AdvReac Type Severity Reaction Status Date / Time erythromycin lactobionate Allergy Swelling Verified 02/20/23 13:43 [From Erythrocin] Penicillins Allergy Swelling Verified 02/20/23 13:43 lisinopril AdvReac Intermediate Cough Verified 02/20/23 13:43 Surgical History History of cholecystectomy Presence of coronary angioplasty implant and graft (~03/13/21) Social History Smoking Status: Never smoker alcohol intake: never substance use type: does not use caffeine: Yes Type: coffee Number of servings: 2 ROS ROS ED Constitutional Constitutional ED: Denies chills, fever(s) or sweats Eyes Eyes: Denies blurry vision or change in vision ENT ENT ED: Denies ear pain or sore throat Cardiovascular Cardiovascular: Reports chest pain; Denies palpitations or racing heartbeat Respiratory/Chest Respiratory/Chest: Denies cough, dyspnea or sputum Gastrointestinal Gastrointestinal: Denies abdominal pain, constipation, diarrhea, nausea or vomiting Genitourinary Genitourinary ED: Denies dysuria, hematuria or urinary frequency Musculoskeletal Musculoskeletal: Denies arthralgias, myalgias or neck pain Integumentary Denies abscess, Abrasions or rash Neurologic Neurologic: Denies headache(s), paresthesias or weakness Psychiatric Psychiatric: Denies anxiety, depression, suicidal ideation or suicidal thoughts Endocrine Endocrinology: Denies polydipsia or polyuria EXAM Physical Exam Const Vital Signs: 02/20/23 13:41 02/20/23 13:43 02/20/23 14:03 Temperature 98.2 F Temperature Source Temporal Pulse Rate 80 Respiratory Rate 18 Respiratory Effort Normal Non-Labored Blood Pressure 150/87 H Blood Pressure Mean 108 Pulse Ox 98 Oxygen Delivery Method Room Air Room Air 02/20/23 16:31 Temperature Temperature Source Pulse Rate 62 Respiratory Rate 15 Respiratory Effort Blood Pressure 138/92 H Blood Pressure Mean 107 Pulse Ox 98 Oxygen Delivery Method Room Air Positive well nourished General Appearance ED: NAD HEENT Reports TM's clear and moist mucous membranes Tympanic Membrane ED: Yes TM's clear Eyes PERRL and EOMs intact bilaterally Neck no lymphadenopathy Chest Wall Chest Narrative: Tenderness to palpation over left upper chest wall. There are some slight bruising here. Equal symmetric breath sounds or chest wall rise. Resp normal respiratory effort Auscultation: Negative for rales, rhonchi or wheezes Cardio regular rate and regular rhythm GI normal to inspection, nondistended, normoactive bowel sounds Neuro oriented x3 and CN's II-XII intact bilaterally Sensorium / Orientation: awake and alert Psych mental status grossly normal Heart Score History: Slightly/Non-Suspicious ECG: Normal Age: >/= 65 years Risk Factors: >/= 3 Risk Factors or History of CAD Troponin: </= Normal Limit Score: 4 MDM MDM MDM Narrative Medical decision making narrative: Patient presenting with chest pain. She is pointing to an area of bruising. I think this is most likely musculoskeletal given her high level of activity. Differential does include ACS in her history. She is PERC negative so I do not believe she has a PE. EKG sinus rhythm with a ventricular rate of 79 bpm without sign of ischemic change or dysrhythmia. Chest x-ray my interpretation shows no acute process. BC is unremarkable. BMP shows a slight elevation of creatinine at 1.34. Electrolytes unremarkable. High-sensitivity troponin is 6. Delta troponin is 8. At this point I feel patient is stable to be discharged home. I recommended follow-up with her primary care and cardiology as needed. Return precautions were discussed. Impression: 1. Chest pain Lab Data Labs: Laboratory Results - last 24 hr 02/20/23 02/20/23 02/20/23 13:45 13:45 16:02 WBC 8.7 RBC 4.47 Hgb 13.6 Hct 43.8 MCV 98.0 MCH 30.4 MCHC 31.1 L RDW Std Deviation 46.0 H RDW Coeff of Obi 12.9 Plt Count 265 MPV 9.6 Immature Gran % (Auto) 0.200 Neut % (Auto) 73.1 H Lymph % (Auto) 19.1 [place] % (Auto) 5.1 Eos % (Auto) 2.2 Baso % (Auto) 0.3 Absolute Neuts (auto) 6.4 Absolute Lymphs (auto) 1.66 Nucleated RBC % 0 Sodium 138 Potassium 3.8 Chloride 110 H Carbon Dioxide 24.0 Anion Gap 4 L BUN 21 H Creatinine 1.34 H Estim Creat Clear Calc 35.53 Est GFR (MDRD) Af Amer 50 L Est GFR (MDRD) Non-Af 41 L BUN/Creatinine Ratio 15.7 Glucose 146 H Calcium 8.4 L Troponin I High Sens 6 8 Radiography Diagnostic Testing: Clinical Impression(s) from Imaging Studies Chest X-Ray 02/20/23 13:53 IMPRESSION: Normal x-ray examination of the chest. Electronically Signed: Jorge Harrell MD at 14:19 EDT Reading Location ID and State: [facility] / [place] Tel , Service support , Discharge Plan Triage Chief Complaint: Chest Pain ED Provider: Holland Shah Dx/Rx/DC Orders Instructions: ED Chest Pain, Noncardiac Prescriptions: No Action clopidogrel [Plavix] 75 mg tablet 75 mg PO QDAY Qty: 90 3RF multivitamin [Daily Multiple] 1 EACH tablet 1 ea PO DAILY ascorbic acid (vitamin C) [Vitamin C] 500 MG tablet 500 mg PO DAILY@0800 cholecalciferol (vitamin D3) [Vitamin D3] 1,000 UNIT tablet 2,000 unit PO DAILY fluticasone propionate 50 mcg/actuation spray,suspension 2 spray intranasal DAILY PRN (Reason: Congestion) aspirin 81 MG tablet,chewable 81 mg PO DAILY@0800 Qty: 30 0RF hydrocodone-acetaminophen 5-325 mg tablet 1 tab PO Q4H PRN (Reason: pain) 4 Days Qty: 14 0RF Entresto 49-51 mg tablet 1 tab PO BID Qty: 180 4RF atorvastatin 10 mg tablet 10 mg PO QHS Qty: 90 3RF carvedilol 12.5 mg tablet 12.5 mg PO BID Qty: 180 4RF Rx Instructions: must administer with a meal/food Primary Care Provider: Heraclio Gaviria Referrals: Heraclio Gaviria DO [Primary Care Provider] - Disposition Disposition: Home, Self Care
== END 2023-02-20 17:03 | disposition home or self-care (01) ==
PROVIDERS: Emergency Provider Student in an Organized Health Care Education/Training Program; PCP Student in an Organized Health Care Education/Training Program; Visit Provider Student in an Organized Health Care Education/Training Program
DX: R07.89 Other chest pain (principal); I10 Essential (primary) hypertension; I25.10 Atherosclerotic heart disease of native coronary artery without angina pectoris; E78.5 Hyperlipidemia, unspecified; I25.2 Old myocardial infarction
CPT/HCPCS: 71045; 80048; 84484; 85025; 93005; 96360; 99285; J7030; A4216

== ENCOUNTER → 2023-10-18 | Outpatient (CLI) | payer MEDICARE, BC, SELFPAY ==
[2023-10-18 09:10] LABS: AST(SGOT) 13 U/L (15-37); Alanine Aminotransfer ALT/SGPT 19 U/L (13-56); Albumin, Serum 3.6 g/dL (3.2-5.0); Alkaline Phosphatase 119 U/L (45-117); Bilirubin, Direct 0.19 mg/dL (0.00-0.30); Cholesterol 97 mg/dL (200); Globulin 3.5 g/dL (2.2-4.2); High Density Lipoprotein 44 mg/dL; Protein, Total 7.1 g/dL (6.4-8.2); Triglycerides 77 mg/dL; Very Low Density Lipoprotein 15 mg/dL (5-40)
== END | disposition home or self-care (01) ==
LOC: LAB 08:18
PROVIDERS: PCP Student in an Organized Health Care Education/Training Program; Visit Provider Nurse Practitioner Family
DX: I25.10 Atherosclerotic heart disease of native coronary artery without angina pectoris (principal); E78.2 Mixed hyperlipidemia
CPT/HCPCS: 36415; 80061; 80076

== ENCOUNTER → 2024-08-15 | Outpatient (CLI) | payer MEDICARE, BC, SELFPAY ==
--- NOTE | 2024-08-15 14:49 | ECHOCS_ITS ---
Reason For Study: CHF Procedure This was a 2D Doppler, Color Flow transthoracic echocardiogram. The study was technically difficult. Poor accoustic windows. Contrast injection was performed. Exam performed in department. Left Ventricle Normal size and thickness. Mid to distal anterior septum and apical severe hypokinesis to akinesis. Estimated LVEF 40 to 45%. Normal diastology for age. Right Ventricle Normal right ventricle. Atria The left atrium is mildly enlarged. Normal right atrium. Mitral Valve Significant mitral regurgitation seen but in 1 frame only in apical four-chamber view. Recommend cardiac MRI or [facility] for further evaluation if clinically indicated. Tricuspid Valve Trivial tricuspid valve insufficiency. Normal pulmonary artery pressure. Aortic Valve Trisinus/trileaflet aortic valve. Pulmonic Valve The pulmonic valve is not well visualized. Great Vessels Normal sized aortic root. Pericardium/Pleural No pericardial effusion. Medication 22 gauge I.V. with prn adaptor inserted into left arm. Diluted definity 2.5ml given slow IV push to enhance endocardial definition. MMode/2D Measurements & Calculations LVIDd: 4.4 cm IVSd: 0.95 cm Ao root diam: 2.7 cm LVIDs: 3.0 cm LVPWd: 0.93 cm FS: 32.3 % LAV(MOD-bp): 47.3 ml LVAd ap4: 27.8 cm2 LVAd ap2: 24.5 cm2 LAV(MOD-bp) Indexed: 26.6 ml/m2 LVLd ap4: 7.3 cm LVLd ap2: 7.5 cm LAV(MOD-sp2): 50.6 ml EDV(MOD-sp4): 87.1 ml EDV(MOD-sp2): 66.6 ml LAV(MOD-sp4): 38.2 ml EDV(sp4-el): 89.4 ml EDV(sp2-el): 68.1 ml LVAs ap4: 19.5 cm2 LVAs ap2: 17.8 cm2 LVLs ap4: 6.4 cm LVLs ap2: 6.9 cm ESV(MOD-sp4): 49.0 ml ESV(MOD-sp2): 36.0 ml ESV(sp4-el): 50.0 ml ESV(sp2-el): 38.5 ml EF(MOD-sp4): 43.8 % EF(MOD-sp2): 46.0 % EF(sp4-el): 44.0 % SV(MOD-sp4): 38.1 ml SV(MOD-sp2): 30.6 ml SV(sp4-el): 39.4 ml LA A4 area: 13.8 cm2 LA dimension(2D): 3.1 cm TAPSE: 1.9 cm Time Measurements MV dec time: 0.24 sec Doppler Measurements & Calculations MV E max clyde: 58.5 cm/sec Lat Peak E' Clyde: 6.0 cm/sec Med Peak E' Clyde: 5.9 cm/sec MV A max clyde: 68.0 cm/sec E/E' lat: 9.8 E/E' med: 10.0 MV E/A: 0.86 MV V2 max: 93.4 cm/sec MV P1/2t max clyde: 95.4 cm/sec Ao V2 max: 106.7 cm/sec MV max P.5 mmHg MV P1/2t: 92.6 msec Ao max P.6 mmHg MV V2 mean: 52.5 cm/sec Ao V2 mean: 71.5 cm/sec MV mean P.3 mmHg MV dec slope: 301.8 cm/sec2 Ao mean P.3 mmHg MV V2 VTI: 28.4 cm MVA(P1/2t): 2.4 cm2 Ao V2 VTI: 23.7 cm AV (velocity ratio): 0.84 LV V1 max: 82.2 cm/sec PA V2 max: 93.5 cm/sec TR max clyde: 267.3 cm/sec LV V1 max P.7 mmHg PA V2 mean: 62.1 cm/sec TR max P.6 mmHg LV V1 mean P.4 mmHg LV V1 mean: 55.6 cm/sec LV V1 VTI: 20.0 cm ECHO/Echo Complete W/ Contrast Interpretation Summary Mid to distal anterior septum and apical severe hypokinesis to akinesis. Estima cee LVEF 40 to 45%. Normal diastology for age. The left atrium is mildly enlarged. Significant mitral regurgitation seen but in 1 frame only in apical four-chambe r view. Recommend cardiac MRI or [facility] for further evaluation if clinically indicated. Ordering Physician: Christian Pino Referring Physician: Christian Pino Performed By: Rosemarie Ng, DERRICK, RVT
== END | disposition home or self-care (01) ==
LOC: CVS 14:48
PROVIDERS: PCP Student in an Organized Health Care Education/Training Program; Referring Provider Internal Medicine Cardiovascular Disease; Visit Provider Internal Medicine Cardiovascular Disease
DX: I25.5 Ischemic cardiomyopathy (principal)
CPT/HCPCS: 93306; Q9957; A4216; C8929